=== PATIENT | male | born 1955 | race Caucasian/White ===

== ENCOUNTER → 2017-03-25 | Outpatient (CLI) | payer BC, OTHER ==
[2017-03-30 11:54] LABS: ALPHAHYDROXYALPRAZOLAM NEGATIVE ng/mL (< 25); ALPHAHYDROXYMIDAZOLAM NEGATIVE ng/mL (< 50); ALPHAHYDROXYTRIAZOLAM NEGATIVE ng/mL (< 50); AMPHETAMINES NEGATIVE ng/mL (< 500); BARBITURATES NEGATIVE ng/mL (< 300); BENZODIAZEPINES POSITIVE ng/mL (< 100); COCAINE METABOLITE NEGATIVE ng/mL (< 150); CODEINE NEGATIVE ng/mL (< 50); CREATININE 59.2 mg/dL (>= 20.0); EDDP 4230 ng/mL (< 100); HYDROCODONE NEGATIVE ng/mL (< 50); HYDROMORPHONE 143 ng/mL (< 50); LORAZEPAM NEGATIVE ng/mL (< 50); MARIJUANA METABOLITE NEGATIVE ng/mL (< 20); METHADONE 2960 ng/mL (< 100); METHADONE METABOLITE POSITIVE ng/mL (< 100); MORPHINE >20000 ng/mL (< 50); NORDIAZEPAM NEGATIVE ng/mL (< 50); OPIATES POSITIVE ng/mL (< 100); OXAZEPAM NEGATIVE ng/mL (< 50); OXIDANT NEGATIVE mcg/mL (< 200); OXYCODONE POSITIVE ng/mL (< 100); OXYCODONE METABOLITE 1690 ng/mL (< 50); OXYMORPHONE 596 ng/mL (< 50); PHENCYCLIDINE NEGATIVE ng/mL (< 25); PRESCRIBED DRUG 1 Morphine; PRESCRIBED DRUG 2 Methadone; TEMAZEPAM NEGATIVE ng/mL (< 50)
== END ==
LOC: LAB.R 08:00
PROVIDERS: ATTEND Family Medicine
DX: Z79.891 Long term (current) use of opiate analgesic (principal)
CPT/HCPCS: 80307

== ENCOUNTER 2017-05-27 15:57 | Outpatient (CLI) | payer OTHER | END 2017-05-27 15:58 | disposition critical access hospital (66) | LOC: EMS 15:57 | PROVIDERS: ATTEND Surgery | DX: R07.9 Chest pain, unspecified (principal); M25.552 Pain in left hip; W11.XXXA Fall on and from ladder, initial encounter; Y92.008 Other place in unspecified non-institutional (private) residence as the place of occurrence of the external cause | CPT/HCPCS: A0425; A0427 ==

== ENCOUNTER 2017-05-27 16:39 | Emergency (ER) | payer OTHER ==
[2017-05-27] MEDS ORDERED: SODIUM CHLORIDE 0.9% 1,000 ML IV ONE (16:45)
--- NOTE | 2017-05-27 16:48 | ED Physician Documentation ---
PD HPI Fall - Stated complaint Stated Complaint: 5 FOOT FALL - History obtained from History obtained from: Patient, EMS - History of Present Illness Mechanism of injury: Other (About 5 feet up on a ladder and fell on his left side impacting his chest lateral wall on the deck. He has no recollection of the actual fall and prior to arrival was confused with repetitive questioning. He has a history of diabetes, chronic back pain. He was desaturating in route into the mid 80s and was placed on a nasal cannula. He is not anticoagulated.) Review of Systems Ten Systems: 10 systems reviewed and negative Constitutional: denies: Fever, Chills Nose: denies: Rhinorrhea / runny nose, Congestion, Epistaxis Cardiac: reports: Chest pain / pressure. denies: Palpitations Respiratory: reports: Dyspnea. denies: Cough GI: denies: Abdominal Pain PD PAST MEDICAL HISTORY - Present Medications Home Medications: Ambulatory Orders Medication Instructions Recorded Confirmed Amitriptyline HCl 05/27/17 Amitriptyline HCl [Amitriptyline 05/27/17 HCl] Atenolol 05/27/17 Ezetimibe [Ezetimibe] 05/27/17 Insulin Glargine [Lantus Solostar] 05/27/17 Insulin Lispro [Humalog] 05/27/17 Lisinopril [Lisinopril] 05/27/17 Methadone HCl [Methadone HCl] 05/27/17 Morphine Sulfate [Morphine Sulfate 05/27/17 ER] clonazePAM [Clonazepam] 05/27/17 oxyCODONE [Roxicodone] 1 - 2 tab PO Q4-6H PRN #25 tablet 05/27/17 risperiDONE [Risperidone] 05/27/17 - Allergies Allergies/Adverse Reactions: Allergies Allergy/AdvReac Type Severity Reaction Status Date / Time No Known Drug Allergies Allergy Verified 05/27/17 16:49 PD ED PE NORMAL - Vitals Vital signs reviewed: Yes - General General: Alert and oriented X 3, No acute distress - HEENT HEENT: PERRL, EOMI - Neck Neck: No bony TTP, Other (In a c-collar and on a backboard. The c-collar is maintained pending imaging given potential distracting injury but the backboard is removed using logroll precautions during examination.) - Cardiac Cardiac: RRR, No murmur - Respiratory Respiratory: Other (Tender to the left chest wall but without deformity. He does have diminished breath sounds on the left. Nonlabored.) - Abdomen Abdomen: Normal bowel sounds, Soft, Non tender - Back Back: No CVA TTP, No spinal TTP - Derm Derm: Normal color, Warm and dry - Extremities Extremities: No deformity, No tenderness to palpate, Normal ROM s pain, No edema , No calf tenderness / cord - Neuro Neuro: Alert and oriented X 3 Eye Opening: Spontaneous Motor: Obeys Commands Verbal: Oriented GCS Score: 15 Results - Vitals Vitals: Vital Signs - 24 hr 05/27/17 05/27/17 05/27/17 16:43 20:08 20:48 Temperature 37 C 37.1 C 36.9 C Heart Rate 72 68 74 Respiratory 10 L 14 12 Rate Blood Pressure 182/91 H 123/74 165/77 H O2 Saturation 89 L 96 91 L Oxygen O2 Source Room air - EKG (time done) 1647 Rate: Rate (enter#) (71) Rhythm: NSR (with PVC) Cammal: Normal Intervals: Normal RI QRS: Normal Ischemia: Non specific changes Computer interpretation: Agree with computer - Labs Labs: Laboratory Tests 05/27/17 05/27/17 05/27/17 16:47 16:47 16:47 WBC 9.7 RBC 4.21 L Hgb 12.3 L Hct 36.8 L MCV 87.3 MCH 29.3 MCHC 33.6 RDW 14.7 Plt Count 174 MPV 7.1 L Neut # 7.1 H Lymph # 1.5 Redwood # 0.6 Eos # 0.4 Baso # 0.1 Absolute Nucleated RBC 0.01 Nucleated RBC % 0.1 PT 10.4 INR 0.9 Sodium 134 L Potassium 3.6 Chloride 95 L Carbon Dioxide 27 Anion Gap 12.0 BUN 23 H Creatinine 1.6 H Estimated GFR (MDRD) 44 L Glucose 163 H Calcium 9.3 Total Bilirubin 0.5 AST 68 H ALT 66 H Alkaline Phosphatase 72 Total Protein 7.1 Albumin 3.7 Globulin 3.4 Albumin/Globulin Ratio 1.1 Lipase < 10 L Blood Type Antibody Screen 05/27/17 16:47 WBC RBC Hgb Hct MCV MCH MCHC RDW Plt Count MPV Neut # Lymph # Redwood # Eos # Baso # Absolute Nucleated RBC Nucleated RBC % PT INR Sodium Potassium Chloride Carbon Dioxide Anion Gap BUN Creatinine Estimated GFR (MDRD) Glucose Calcium Total Bilirubin AST ALT Alkaline Phosphatase Total Protein Albumin Globulin Albumin/Globulin Ratio Lipase Blood Type B POSITIVE Antibody Screen NEGATIVE - Rads (name of study) CT Head/Cspine/Chest/Abd/Pelvis Radiology: EMP read contemporaneously (Degenerative changes of the head and neck , there is an anterior third rib fracture that the radiologist feels is old but the patient has no recollection of a prior rib fracture, so may be new. There is no pneumothorax. There is no visceral injury in the abdomen there is an acetabular fracture on the left.) PD MEDICAL DECISION MAKING - ED course ED course: 61-year-old gentleman with fall from a ladder. May be a new rib fracture although the radiologist felt it was old although he has no recollection of a prior rib fracture. He does have an acetabular fracture on the left. The case was discussed by phone with Dr. Min Sanders who felt that it was likely he can be toe-touch weightbearing for 6 weeks and this could be managed conservatively. That said he also recommended that the images be pushed [facility] to talk to the pelvic fracture team to confirm this. I did discuss the case with Dr. Carlos Montejo on the orthosis for this at [facility] who confirmed these recommendations. I went over touch toe weightbearing with the patient and we administered him a incentive spirometer. After combination of pulmonary toilet, pain control, and incentive spirometry, his sats were normal on room air. Departure - Departure Disposition: 01 Home, Self Care Clinical Impression: Contusion of chest wall Qualifiers: Encounter type: initial encounter Laterality: left Qualified Code(s): S20.212A - Contusion of left front wall of thorax, initial encounter Fracture of rib Qualifiers: Encounter type: initial encounter Rib fracture type: single rib Fracture type: closed Laterality: left Qualified Code(s): S22.32XA - Fracture of one rib, left side, initial encounter for closed fracture Injury of back Qualifiers: Encounter type: initial encounter Qualified Code(s): S39.92XA - Unspecified injury of lower back, initial encounter Back strain Qualifiers: Encounter type: initial encounter Qualified Code(s): S39.012A - Strain of muscle, fascia and tendon of lower back, initial encounter Fracture of pelvis Qualifiers: Encounter type: initial encounter Pelvic bone location: acetabulum Sublocation of acetabulum: dome Fracture type: closed Fracture alignment: nondisplaced Laterality: left Qualified Code(s): S32.485A - Nondisplaced dome fracture of left acetabulum, initial encounter for closed fracture Clinical Impression: (Ruled Out): Pneumothorax Condition: Stable Record reviewed to determine appropriate education?: Yes Instructions: ED Fx Pelvis, ED Contusion Rib Prescriptions: oxyCODONE [Roxicodone] 1 - 2 tab PO Q4-6H PRN #25 tablet PRN Reason: Pain Comments: Continue your baseline pain medications. Use the incentive spirometer as discussed. Touch toe weightbearing as shown until advised it is safe to do otherwise by your orthopedic surgeon. Follow-up with your orthopedist in [place] next week. Take the copy of the x-ray and CAT scan on CD with you for that appointment. He will need repeat x-rays in 1 week. Return if worse. Do not drink or drive while taking narcotic pain medication. Note that many narcotic pain relievers also contain Tylenol/acetaminophen. Please ensure that your total dose of acetaminophen from all sources does not exceed 3 g (3000 mg) per day. You may get constipated while on this medication. Take a stool softener such as Colace twice a day while you are on it. Also add an ewne-qja-qygyggc laxative such as senna or MiraLAX on any day that you do not have a bowel movement. If you received a narcotic pain medication or sedative while in the emergency department, do not drive for the next 24 hours. Discharge Date/Time: 05/27/17 20:58
[2017-05-27 16:54] LABS: BASOPHILS # (AUTO) 0.1 10^3/uL (0.0-0.1); BASOPHILS % (AUTO) 0.7 %; EOSINOPHILS # (AUTO) 0.4 10^3/uL (0.0-0.7); EOSINOPHILS % (AUTO) 4.2 %; HGB - HEMOGLOBIN 12.3 g/dL (14.0-18.0); LYMPHOCYTES # (AUTO) 1.5 10^3/uL (1.5-3.5); LYMPHOCYTES % (AUTO) 15.2 %; MEAN CORPUSCULAR HEMOGLOBIN 29.3 pg (27.0-31.0); MEAN CORPUSCULAR HGB CONC 33.6 g/dL (32.0-36.0); MEAN CORPUSCULAR VOLUME 87.3 fL (80.0-94.0); MEAN PLATELET VOLUME 7.1 fL (7.4-11.4); MONOCYTES # (AUTO) 0.6 10^3/uL (0.0-1.0); MONOCYTES % (AUTO) 6.4 %; NEUTROPHILS # (AUTO) 7.1 10^3/uL (1.5-6.6); NEUTROPHILS % (AUTO) 73.5 %; PLT - PLATELET COUNT 174 10^3/uL (130-450); RED BLOOD COUNT 4.21 10^6/uL (4.70-6.10); RED CELL DISTRIBUTION WIDTH 14.7 % (12.0-15.0); WHITE BLOOD COUNT 9.7 x10^3/uL (4.8-10.8)
[2017-05-27] MEDS ORDERED: IOPAMIDOL-300 100 ML VIAL ONE (16:57)
[2017-05-27 17:10] LABS: INR 0.9 (0.8-1.2); PT - PROTHROMBIN TIME 10.4 secs (9.9-12.6)
--- NOTE | 2017-05-27 17:11 | XRAY Report ---
EXAM: CHEST RADIOGRAPHY EXAM DATE: 05/27/2017 04:52 PM. CLINICAL HISTORY: Chest pain fall. COMPARISON: 05/01/2011. TECHNIQUE: 1 view. FINDINGS: Lungs/Pleura: Mild diffuse prominence of lung markings, possibly related to supine technique. No loca lized infiltrate, consolidation, effusion, or pneumothorax. Mediastinum: Borderline cardiomegaly, unchanged. Other: None. IMPRESSION: No acute disease. [facility] Referring Provider Line: [phone] SITE ID: [id number]
[2017-05-27] MEDS ORDERED: HYDROmorphone 1 MG/ML SYRINGE IVP STA ×3 (17:16→20:41)
[2017-05-27 17:17] LABS: ALBUMIN 3.7 g/dL (3.2-5.5); ALBUMIN/GLOBULIN RATIO 1.1 (1.0-2.2); ALKALINE PHOSPHATASE 72 IU/L (42-121); ALT ALANINE AMINOTRANSFERASE 66 IU/L (10-60); AST ASPARTATE AMINOTRANSFERASE 68 IU/L (10-42); BILIRUBIN,TOTAL 0.5 mg/dL (0.2-1.0); BUN - BLOOD UREA NITROGEN 23 mg/dL (6-20); CALCIUM 9.3 mg/dL (8.5-10.3); CARBON DIOXIDE - CO2 27 mmol/L (21-32); CHLORIDE 95 mmol/L (101-111); CREATININE 1.6 mg/dL (0.6-1.2); GFR - MDRD 44 (>89); GLUCOSE 163 mg/dL (70-100); SODIUM 134 mmol/L (135-145); TOTAL PROTEIN 7.1 g/dL (6.7-8.2)
[2017-05-27 17:18] LABS: LIPASE < 10 U/L (22-51)
[2017-05-27] MEDS ORDERED: IOPAMIDOL-300 100 ML VIAL IVP ONE (17:27)
--- NOTE | 2017-05-27 17:31 | CT Report ---
EXAM: CT HEAD EXAM DATE: 05/27/2017 05:17 PM. CLINICAL HISTORY: Fall, pain. COMPARISON: None. TECHNIQUE: Multiaxial CT images were obtained from the foramen magnum to the vertex. Reformats: Coron al. IV contrast: None. In accordance with CT protocol optimization, one or more of the following dose reduction techniques w ere utilized for this exam: automated exposure control, adjustment of mA and/or KV based on patient s ize, or use of iterative reconstructive technique. FINDINGS: Parenchyma: No intraparenchymal hemorrhage. No evidence of mass, midline shift, or CT findings of acu te infarction. Bonilla-white differentiation is distinct. Diffuse chronic microangiopathic white matter changes. Extraaxial Spaces: Normal for age. No subdural or epidural collections. Ventricles: The ventricles and cortical sulci are enlarged, consistent with age-related tissue loss. Sinuses and orbits: Imaged paranasal sinuses, orbits, and mastoids show no significant abnormality. Bones: Postoperative changes of left facial bones. No acute abnormality. Other: None. IMPRESSION: Generalized age-related cortical atrophic changes without evidence of acute intracranial abnormality. [facility] Referring Provider Line: [phone] SITE ID: [id number]
--- NOTE | 2017-05-27 17:36 | CT Report ---
EXAM: CT CERVICAL SPINE WITHOUT CONTRAST DATE: 05/27/2017 05:17 PM. HISTORY: Fall, pain. COMPARISONS: None. TECHNIQUE: Thin-section axial images were acquired of the cervical spine without contrast. Post-proce ssing: Coronal and sagittal reformats. Other: None. In accordance with CT protocol optimization, one or more of the following dose reduction techniques w ere utilized for this exam: automated exposure control, adjustment of mA and/or KV based on patient s ize, or use of iterative reconstructive technique. FINDINGS: Alignment: Mild scoliosis. No listhesis. Bones: No definite fracture or other bone lesion. Interspace Levels/Facets: Disk space narrowing at C4-C5, C5-C6, and C6-C7 with small marginal osteoph ytes. Other disk spaces preserved. Generalized degenerative changes. Musculature: Unremarkable. Other: The paravertebral and prevertebral soft tissues are unremarkable. Hazy density in both lung ap ices, probably atelectatic. IMPRESSION: Degenerative changes. No acute disease. [facility] Referring Provider Line: [phone] SITE ID: [id number]
--- NOTE | 2017-05-27 17:36 | CT Preliminary Report ---
Exam: CT CERVICAL SPINE W/O IMPRESSION: Degenerative changes. No acute disease. [facility] SITE ID: [id number]
--- NOTE | 2017-05-27 17:56 | CT Report ---
EXAM: CT CHEST EXAM DATE: 05/27/2017 05:10 PM. CLINICAL HISTORY: Chest pain fall. COMPARISONS: 04/16/[address] TECHNIQUE: Routine helical CT imaging was performed through the chest. IV contrast: None. Reconstruct ions: Coronal and sagittal. In accordance with CT protocol optimization, one or more of the following dose reduction techniques w ere utilized for this exam: automated exposure control, adjustment of mA and/or KV based on patient s ize, or use of iterative reconstructive technique. FINDINGS: Lungs/Pleura: There are mild emphysematous changes at the lung apices. Subpleural reticular opacities also seen. Dependent changes seen at the lung bases. No consolidation, pleural effusion or pneumotho rax. Mediastinum: Normal. No adenopathy or masses. The heart and great vessels are normal. Mildly enlarged high right paraesophageal and AP window lymph nodes are stable. Bones: There is a moderately depressed anterior right third rib fracture possibly chronic. Otherwise no acute fracture seen. Visualized Abdomen: Unremarkable. Other: None. IMPRESSION: 1. Chronic-appearing, anterior right third rib fracture deformity. 2. No acute pulmonary abnormality. 3. Emphysema. [facility] Referring Provider Line: [phone] SITE ID: [id number]
--- NOTE | 2017-05-27 18:02 | CT Report ---
EXAM: CT ABDOMEN AND PELVIS EXAM DATE: 05/27/2017 05:10 PM. CLINICAL HISTORY: IV only, trauma. COMPARISONS: None. TECHNIQUE: Routine helical CT imaging was performed through the abdomen and pelvis. IV contrast: ISOV UE 300 100mL. Enteric contrast: No. Reconstructions: Coronal and sagittal. In accordance with CT protocol optimization, one or more of the following dose reduction techniques w ere utilized for this exam: automated exposure control, adjustment of mA and/or KV based on patient s ize, or use of iterative reconstructive technique. FINDINGS: Lung Bases: Unremarkable. Liver: Decreased hepatic attenuation with no focal liver lesions. Gallbladder/Bile Ducts: Unremarkable. Spleen: Normal. Pancreas: Normal. Adrenal Glands: Normal. Kidneys: Normal. No masses or hydronephrosis. Peritoneal Cavity/Bowel: Normal. No free fluid, free air or adenopathy. No masses or acute inflammato ry process. Diverticulosis. No diverticulitis or other acute inflammatory process. Pelvic Organs: Normal. The bladder and visualized pelvic organs are within normal limits. Vasculature: Atherosclerotic aorta without evidence of aneurysm. Bones: There mildly displaced fractures involving the anterior column and roof of left acetabulum. Other: None. IMPRESSION: 1. Left acetabular fractures. 2. No evidence of acute solid or hollow abdominal viscera trauma. 3. Fatty liver. 4. Diverticulosis. [facility] Referring Provider Line: [phone] SITE ID: [id number]
--- NOTE | 2017-05-27 18:02 | CT Preliminary Report ---
Exam: CT ABDOMEN/PELVIS W/ IMPRESSION: 1. Left acetabular fractures. 2. No evidence of acute solid or hollow abdominal viscera trauma. 3. Fatty liver. 4. Diverticulosis. [facility] SITE ID: [id number]
--- NOTE | 2017-05-27 18:08 | XRAY Preliminary Report ---
Exam: XR HIP W/PELVIS 2-3V LT IMPRESSION: Left acetabulum fracture. [facility] SITE ID: [id number]
--- NOTE | 2017-05-27 18:09 | XRAY Report ---
EXAM: LEFT HIP AND PELVIS RADIOGRAPHY EXAM DATE: 05/27/2017 05:44 PM. HISTORY: HIP PAIN FALL. COMPARISONS: None. TECHNIQUE: 1 view of the pelvis and 1 view of the hip. FINDINGS: Bones: There is a nondisplaced vertically oriented fracture involving the roof of the left acetabulum extending superiorly towards the squamous portion of the ileum. This is better demonstrated on CT. N o other fractures seen. Joints: The bilateral hip, pubis symphysis, and sacroiliac joints are preserved. Soft Tissues: Normal. No soft tissue swelling. IMPRESSION: Left acetabulum fracture. [facility] Referring Provider Line: [phone] SITE ID: [id number]
[2017-05-27] MEDS ORDERED: KETOROLAC 60 MG/2 ML VIAL IVP STA (19:10)
[2017-05-27] MEDS ORDERED: oxyCODONE/ACET 5/325 Prepack 4 PO STA (20:41)
[2017-05-27 20:50] VITALS: BP 165/77
== END 2017-05-27 20:58 | disposition home or self-care (01) ==
LOC: EDUNIT# → ED 16:39
DX: S20.212A Contusion of left front wall of thorax, initial encounter (principal); S22.32XA Fracture of one rib, left side, initial encounter for closed fracture; S39.92XA Unspecified injury of lower back, initial encounter; S39.012A Strain of muscle, fascia and tendon of lower back, initial encounter; S32.485A Nondisplaced dome fracture of left acetabulum, initial encounter for closed fracture; W11.XXXA Fall on and from ladder, initial encounter; R94.31 Abnormal electrocardiogram [ECG] [EKG]; E11.9 Type 2 diabetes mellitus without complications; G89.29 Other chronic pain; Z79.4 Long term (current) use of insulin
CPT/HCPCS: 36415; 70450; 71045; 71260; 72125; 73502; 74177; 80053; 83690; 85025; 85610; 86850; 86900; 86901; 93005; 96361; 96374; 96375; 96376; 99284; J1170; Q9967

== ENCOUNTER 2018-01-06 08:00 | Outpatient (CLI) | payer OTHER ==
[2018-01-06 18:22] LABS: MUDS CUTOFF CONCENTRATIONS CUTOFF CONC BELOW:
[2018-01-06 18:51] LABS: AMPHETAMINE SCREEN,URINE NEGATIVE (NEGATIVE); BENZODIAZEPINES SCREEN, URINE NEGATIVE (NEGATIVE); COCAINE SCREEN URINE NEGATIVE (NEGATIVE); METHADONE SCREEN, URINE POSITIVE (NEGATIVE); METHAMPHETAMINES SCREEN, URINE NEGATIVE (NEGATIVE); OPIATE SCREEN, URINE POSITIVE (NEGATIVE); OXYCODONE SCREEN, URINE NEGATIVE (NEGATIVE); PROPOXYPHENE SCREEN, URINE NEGATIVE (NEGATIVE); TRICYCLIC ANTIDEPRESSANT,URINE POSITIVE (NEGATIVE)
== END 2018-01-06 08:01 | disposition home or self-care (01) ==
LOC: LAB.R 08:00
PROVIDERS: ATTEND Nurse Practitioner Family
DX: G89.29 Other chronic pain (principal)
CPT/HCPCS: 80306

== ENCOUNTER 2018-02-10 08:39 | Outpatient (CLI) | payer OTHER ==
--- NOTE | 2018-02-10 17:06 | DEXA Report ---
Reason: OSTEOPOROSS, SEVERE Procedure Date: 02/10/2018 Accession Number: [id number] / [id number] Procedure: DEX - Dexa Spine and/or Hip CPT Code: FULL RESULT: EXAM: Dexa Spine and/or Hip DATE: 02/10/2018 9:34 AM CLINICAL HISTORY: OSTEOPOROSIS, SEVERE TECHNIQUE: Dual energy x-ray absorptiometry (DXA) was performed on a [employer]. Regions measured are the AP Spine, femoral neck, and if needed forearm. COMPARISON: None. In accordance with the International Society for Clinical Densitometry (ISCD) guidelines, data from previous exams may be reanalyzed using current recommendations and techniques. This is done to allow a more accurate basis for comparison with the current study. FINDINGS: The data for the lumbar spine is as follows: BMD (g/cm/cm) T-SCORE Z-SCORE REGION L1 0.919 -2.0 -1.9 L2 1.151 -0.7 -0.6 L3 1.101 -1.2 -1.0 L4 1.063 -1.5 -1.4 TOTAL 1.062 -1.3 -1.2 NOTE: All evaluable vertebrae are used for classification The data for the hip is as follows: BMD (g/cm/cm) T-SCORE Z-SCORE REGION Neck 0.956 -0.9 -0.1 TOTAL 0.894 -1.4 -1.1 NOTE: The femoral neck or total proximal femur, whichever is lowest, is used for classification. IMPRESSION: THE WHO CLASSIFICATION BASED ON THE INTERNATIONAL REFERENCE STANDARD IS OSTEOPENIA. THE FRACTURE RISK IS INCREASED. RECOMMENDATION: Patients with diagnosis of osteoporosis or osteopenia should have regular bone mineral density assessment. For those eligible for Medicare, routine testing is allowed once every 2 years. Testing frequency can be increased for patients who have rapidly progressing disease or for those who are receiving medical therapy to restore bone mass. COMMENT: World Health Organization (WHO) definitions for osteoporosis and osteopenia: NORMAL BMD: T-score at -1.0 or higher, fracture risk is low OSTEOPENIA BMD: T-score between -1.0 and -2.5, fracture risk is increased. OSTEOPOROSIS BMD: T-score at -2.5 or lower, fracture risk is high. National Osteoporosis Foundation recommends: 1. Obtain adequate dietary calcium (at least 1200 mg per day) and vitamin D (400-800 international units per day). 2. Participate, as appropriate, in regular weightbearing and muscle-strengthening exercise. 3. Avoid tobacco use and reduce alcohol and caffeine intake. 4. For more detailed information see the website at www.NOF.org.
== END 2018-02-10 08:40 | disposition home or self-care (01) ==
LOC: DI 08:39
PROVIDERS: ATTEND Internal Medicine Endocrinology, Diabetes & Metabolism
DX: M85.89 Other specified disorders of bone density and structure, multiple sites (principal)
CPT/HCPCS: 77080

== ENCOUNTER 2018-08-15 08:00 | Outpatient (CLI) | payer OTHER ==
[2018-08-15 18:48] LABS: HB2 TOTAL 14.6 g/dL; HEMOGLOBIN A1C 0.83 g/dL; HEMOGLOBIN A1C % 7.4 % (4.6-6.2)
== END 2018-08-15 23:59 | disposition home or self-care (01) ==
LOC: LAB.S 08:00
PROVIDERS: ATTEND Nurse Practitioner Family
DX: E11.9 Type 2 diabetes mellitus without complications (principal)
CPT/HCPCS: 36415; 83036

== ENCOUNTER 2018-10-14 11:33 | Outpatient (CLI) | payer OTHER ==
[2018-10-14 18:31] LABS: CALCIUM 9.9 mg/dL (8.5-10.3); CREATININE 1.1 mg/dL (0.6-1.2)
[2018-10-14 18:33] LABS: HB2 TOTAL 14.6 g/dL; HEMOGLOBIN A1C 0.56 g/dL; HEMOGLOBIN A1C % 5.7 % (4.6-6.2)
== END 2018-10-14 11:34 | disposition home or self-care (01) ==
LOC: LAB.S 11:33
PROVIDERS: ATTEND Physician Assistant Medical
DX: E11.9 Type 2 diabetes mellitus without complications (principal)
CPT/HCPCS: 36415; 80048; 83036

== ENCOUNTER 2019-07-17 19:16 | Outpatient (CLI) | payer MEDICARE | END 2019-07-17 19:17 | disposition home or self-care (01) | LOC: COV 19:16 | PROVIDERS: ATTEND Family Medicine | DX: R50.9 Fever, unspecified (principal); R05 Cough; R06.02 Shortness of breath; R06.2 Wheezing; M79.10 Myalgia, unspecified site; R53.83 Other fatigue; J02.9 Acute pharyngitis, unspecified; R19.7 Diarrhea, unspecified | CPT/HCPCS: 81599 ==

== ENCOUNTER 2019-07-20 11:53 | Emergency (ER) | payer MEDICARE ==
--- NOTE | 2019-07-20 12:35 | ED Physician Documentation ---
History of Present Illness - Stated complaint Stated Complaint: SOA/EYE PAIN/COUGH - Chief complaint Chief Complaint: General - History obtained from History obtained from: Patient (Patient comes in today per the request of his primary care provider to get a chest x-ray to make sure he does not have a pneumonia. The patient has had a approximately 3 to 4-week history of shortness of breath that is required him to use his inhaler at home. He used it twice today. Patient was feeling sick approximately 3 weeks ago he went saw his primary care provider, he was tested for the COVID-19 and he came back negative. His symptoms of can remain the same since then he has had no recent contact with cocaine positive patients, he has been self quarantine at home, his who lives with him at home is not ill. Patient denies any fevers, nausea, vomiting, diarrhea.) Review of Systems Constitutional: denies: Fever, Chills, Weight Loss Eyes: reports: Reviewed and negative Ears: reports: Reviewed and negative Nose: denies: Rhinorrhea / runny nose, Sinus pressure / pain Throat: denies: Sore throat Respiratory: denies: Cough, Wheezing GI: denies: Abdominal Pain, Nausea, Vomiting, Diarrhea Skin: reports: Reviewed and negative Musculoskeletal: reports: Other (baseline pain that he take morphine for. NO new body aches/ pains.) Neurologic: denies: Headache, Head injury PD PAST MEDICAL HISTORY - Past Medical History Cardiovascular: Hypertension, High cholesterol Endocrine/Autoimmune: Type 2 diabetes GI: GERD Musculoskeletal: Osteoarthritis, Osteoporosis, Chronic back pain - Past Surgical History Past Surgical History: Yes - Present Medications Home Medications: Ambulatory Orders Medication Instructions Recorded Confirmed Amitriptyline HCl 100 mg PO DAILY 05/27/17 09/27/17 Amitriptyline HCl 100 mg PO DAILY 05/27/17 09/27/17 Ezetimibe 10 mg PO DAILY 05/27/17 09/27/17 Insulin Glargine [Lantus Solostar] 100 units SUBQ QPM 05/27/17 10/13/17 Insulin Lispro [Humalog] 15 - 35 units SUBQ BIDWM PRN 05/27/17 09/27/17 Methadone HCl 1 tab PO QID 05/27/17 09/27/17 Morphine Sulfate [Morphine Sulfate 1 tab PO BID 05/27/17 09/27/17 ER] atenoloL [Atenolol] 50 mg PO BID 05/27/17 09/27/17 clonazePAM [Clonazepam] 1 tab PO PRN PRN 05/27/17 09/27/17 lisinopriL [Lisinopril] 20 mg PO BID 05/27/17 09/27/17 oxyCODONE [Roxicodone] 1 - 2 tab PO Q4-6H PRN #25 tablet 05/27/17 09/27/17 risperiDONE [Risperidone] 4 mg PO DAILY 05/27/17 09/27/17 Pantoprazole Sodium 20 mg PO DAILY 09/27/17 09/27/17 Testosterone [Testim] 5 gm TD DAILY 09/27/17 09/27/17 - Allergies Allergies/Adverse Reactions: Allergies Allergy/AdvReac Type Severity Reaction Status Date / Time No Known Drug Allergies Allergy Verified 05/27/17 16:49 - Social History Does the pt smoke?: No Smoking Status: Former smoker Does the pt drink ETOH?: No Does the pt have substance abuse?: No PD ED PE NORMAL - General General: Alert and oriented X 3, No acute distress, Well developed/nourished - HEENT HEENT: Atraumatic, PERRL, EOMI, Ears normal, Moist mucous membranes, Pharynx benign - Neck Neck: No adenopathy - Cardiac Cardiac: RRR, No murmur - Respiratory Respiratory: No respiratory distress, Clear bilaterally - Abdomen Abdomen: Normal bowel sounds, Soft, Non tender, Non distended - Back Back: No CVA TTP - Extremities Extremities: Other (LLE BKA.) - Neuro Neuro: Alert and oriented X 3 Results - Vitals Vitals: Vital Signs - 24 hr 07/20/19 12:08 Temperature 36.7 C Heart Rate 70 Respiratory 16 Rate Blood Pressure 141/81 H O2 Saturation 98 Oxygen O2 Source Room air - Rads (name of study) No standard instances Radiology: See rad report (no focal consolidation identified.) PD MEDICAL DECISION MAKING - ED course Complexity details: reviewed results, re-evaluated patient, considered differential (Assess) versus pneumonia versus viral upper respiratory infection.), d/w patient Departure - Departure Disposition: 01 Home, Self Care Clinical Impression: Viral URI with cough Condition: Good Instructions: ED Viral Syndrome Comments: Your chest x-ray today was normal and did not show any pneumonia. Your longs sound clear and moving air easily. Your ears, nose, and throat appear normal as well. It will take roughly 24 -36 hours for the results of the Covid-19 test results to come back. You can continue to take Ibuprofen &/or Tylenol for body aches and low grade fevers. Contact your primary care provider to schedule a follow up appointment in one week.
--- NOTE | 2019-07-20 12:42 | XRAY Report ---
Reason: cough Procedure Date: 07/20/2019 Accession Number: [id number] / [id number] Procedure: XR - Chest 1 View X-Ray CPT Code: 64483 Final Report FULL RESULT: EXAM: CHEST RADIOGRAPHY EXAM DATE: 07/20/2019 12:28 PM. CLINICAL HISTORY: Cough. COMPARISON: CHEST 1 VIEW 05/27/2017 4:38 PM. TECHNIQUE: 1 view. FINDINGS: Lungs/Pleura: No acute consolidations or pulmonary edema identified. No significant change in mildly prominent interstitial markings bilaterally. Heart size within normal limits. IMPRESSION: No focal consolidations identified [facility]
[2019-07-20 13:59] VITALS: BP 138/86
== END 2019-07-20 13:20 | disposition home or self-care (01) ==
LOC: ED 11:53
DX: J06.9 Acute upper respiratory infection, unspecified (principal); I10 Essential (primary) hypertension; E11.9 Type 2 diabetes mellitus without complications; Z87.891 Personal history of nicotine dependence; Z79.4 Long term (current) use of insulin
CPT/HCPCS: 71045; 99284; U0004; 81599

== ENCOUNTER 2019-09-25 12:20 | Emergency (ER) | payer MEDICARE ==
--- NOTE | 2019-09-25 13:06 | ED Physician Documentation ---
History of Present Illness - Stated complaint Stated Complaint: FEVER/DIZZY - Chief complaint Chief Complaint: General - History obtained from History obtained from: Patient - History of Present Illness Timing: Last night - Additonal information Additional information: 64-year-old gentleman with history of diabetes, cervical myelopathy status post laminectomy in the last couple of months with improving strength. Starting last night he was not feeling so great and this morning felt presyncopal. He was febrile to 101. His blood sugars have been on the high side this morning despite taking extra insulin. Minimal cough. Some runny nose and he has some bad teeth. No urinary complaints or abdominal pain. Review of Systems Constitutional: reports: Fever, Fatigue Respiratory: reports: Cough (v mild). denies: Dyspnea GI: denies: Abdominal Pain, Nausea, Diarrhea PD PAST MEDICAL HISTORY - Past Medical History Cardiovascular: Hypertension, High cholesterol Respiratory: Asthma Neuro: None Endocrine/Autoimmune: Type 2 diabetes GI: GERD : None HEENT: None Psych: None Musculoskeletal: Osteoarthritis, Osteoporosis, Chronic back pain Derm: None - Past Surgical History Past Surgical History: Yes - Present Medications Home Medications: Ambulatory Orders Medication Instructions Recorded Confirmed Amitriptyline HCl 100 mg PO DAILY 05/27/17 09/27/17 Amitriptyline HCl 100 mg PO DAILY 05/27/17 09/27/17 Ezetimibe 10 mg PO DAILY 05/27/17 09/27/17 Insulin Glargine [Lantus Solostar] 100 units SUBQ QPM 05/27/17 10/13/17 Insulin Lispro [Humalog] 15 - 35 units SUBQ BIDWM PRN 05/27/17 09/27/17 Methadone HCl 1 tab PO QID 05/27/17 09/27/17 Morphine Sulfate [Morphine Sulfate 1 tab PO BID 05/27/17 09/27/17 ER] atenoloL [Atenolol] 50 mg PO BID 05/27/17 09/27/17 clonazePAM [Clonazepam] 1 tab PO PRN PRN 05/27/17 09/27/17 lisinopriL [Lisinopril] 20 mg PO BID 05/27/17 09/27/17 oxyCODONE [Roxicodone] 1 - 2 tab PO Q4-6H PRN #25 tablet 05/27/17 09/27/17 risperiDONE [Risperidone] 4 mg PO DAILY 05/27/17 09/27/17 Pantoprazole Sodium 20 mg PO DAILY 09/27/17 09/27/17 Testosterone [Testim] 5 gm TD DAILY 09/27/17 09/27/17 Penicillin V Potassium 500 mg PO Q6HR #40 tablet 09/25/19 - Allergies Allergies/Adverse Reactions: Allergies Allergy/AdvReac Type Severity Reaction Status Date / Time No Known Drug Allergies Allergy Verified 05/27/17 16:49 - Social History Does the pt smoke?: No Smoking Status: Former smoker Does the pt drink ETOH?: No Does the pt have substance abuse?: No - Immunizations Immunizations are current?: Yes - POLST Patient has POLST: No PD ED PE NORMAL - Vitals Vital signs reviewed: Yes - General General: Alert and oriented X 3, No acute distress - HEENT HEENT: PERRL, EOMI, Other (Generally poor dentition and he does have a tender tooth, right mandibular premolar) - Neck Neck: Supple, no meningeal sign, No bony TTP - Cardiac Cardiac: RRR, No murmur - Respiratory Respiratory: No respiratory distress, Clear bilaterally - Abdomen Abdomen: Soft, Non tender - Back Back: No CVA TTP, No spinal TTP - Derm Derm: Normal color, Warm and dry - Extremities Extremities: Other (He has a left BKA. There is a small healing pressure ulcer on the right heel without infection.) - Neuro Neuro: Alert and oriented X 3, Normal speech, Other (Some general weakness but improving after the laminectomy per him and his .) Results - Vitals Vitals: Vital Signs - 24 hr 09/25/19 09/25/19 09/25/19 12:25 13:30 14:00 Temperature 36.8 C Heart Rate 107 H 92 92 Respiratory 20 18 18 Rate Blood Pressure 136/109 H 170/89 H 175/76 H O2 Saturation 97 96 97 Oxygen O2 Source Room air - Labs Labs: Laboratory Tests 09/25/19 09/25/19 09/25/19 12:36 13:21 13:21 WBC 8.5 RBC 4.79 Hgb 14.2 Hct 42.6 MCV 88.9 MCH 29.6 MCHC 33.3 RDW 13.2 Plt Count 163 MPV 8.5 Neut # (Auto) 5.8 Lymph # (Auto) 1.8 [place] # (Auto) 0.5 Eos # (Auto) 0.4 Baso # (Auto) 0.0 Absolute Nucleated RBC 0.00 Nucleated RBC % 0.0 Sodium 139 Potassium 4.1 Chloride 100 L Carbon Dioxide 31 Anion Gap 8.0 BUN 23 H Creatinine 0.9 Estimated GFR (MDRD) 85 L Glucose 148 H POC Whole Bld Glucose 200 H Lactic Acid Calcium 9.7 Total Bilirubin 0.6 AST 16 ALT 19 Alkaline Phosphatase 78 Total Protein 8.1 Albumin 4.3 Globulin 3.8 Albumin/Globulin Ratio 1.1 Lipase 20 L Urine Color Urine Clarity Urine pH Ur Specific Crane Urine Protein Urine Glucose (UA) Urine Ketones Urine Occult Blood Urine Nitrite Urine Bilirubin Urine Urobilinogen Ur Leukocyte Esterase Ur Microscopic Review Urine Culture Comments 09/25/19 09/25/19 13:21 14:05 WBC RBC Hgb Hct MCV MCH MCHC RDW Plt Count MPV Neut # (Auto) Lymph # (Auto) [place] # (Auto) Eos # (Auto) Baso # (Auto) Absolute Nucleated RBC Nucleated RBC % Sodium Potassium Chloride Carbon Dioxide Anion Gap BUN Creatinine Estimated GFR (MDRD) Glucose POC Whole Bld Glucose Lactic Acid 0.9 Calcium Total Bilirubin AST ALT Alkaline Phosphatase Total Protein Albumin Globulin Albumin/Globulin Ratio Lipase Urine Color YELLOW Urine Clarity CLEAR Urine pH 7.0 Ur Specific Crane 1.010 Urine Protein TRACE Urine Glucose (UA) NEGATIVE Urine Ketones NEGATIVE Urine Occult Blood NEGATIVE Urine Nitrite NEGATIVE Urine Bilirubin NEGATIVE Urine Urobilinogen 0.2 (NORMAL) Ur Leukocyte Esterase NEGATIVE Ur Microscopic Review NOT INDICATED Urine Culture Comments NOT INDICATED - Rads (name of study) 1v CXR Radiology: EMP read contemporaneously (NAD) PD MEDICAL DECISION MAKING - ED course ED course: 64-year-old gentleman presents with fever, feeling presyncopal and higher than normal blood sugars. Only infectious source was found was a bad tooth and he prefers penicillin given his personal history of C. difficile. Departure - Departure Disposition: 01 Home, Self Care Clinical Impression: Dental infection Fever Qualifiers: Fever type: unspecified Qualified Code(s): R50.9 - Fever, unspecified Condition: Good Record reviewed to determine appropriate education?: Yes Instructions: ED Abscess Dental Prescriptions: Penicillin V Potassium 500 mg PO Q6HR #40 tablet Comments: You were seen today for fever, feeling weak and dizzy. The only source of fever that was found was the bad tooth. Your urine and chest x-ray were normal. Follow-up with your dentist as soon as possible. Return for new or worsening symptoms.
[2019-09-25 13:27] LABS: BASOPHILS % (AUTO) 0.4 %; EOSINOPHILS # (AUTO) 0.4 10^3/uL (0.0-0.7); EOSINOPHILS % (AUTO) 4.8 %; HGB - HEMOGLOBIN 14.2 g/dL (14.0-18.0); LYMPHOCYTES # (AUTO) 1.8 10^3/uL (1.5-3.5); MEAN CORPUSCULAR HEMOGLOBIN 29.6 pg (27.0-31.0); MEAN CORPUSCULAR HGB CONC 33.3 g/dL (32.0-36.0); MEAN CORPUSCULAR VOLUME 88.9 fL (80.0-94.0); MEAN PLATELET VOLUME 8.5 fL (7.4-11.4); MONOCYTES # (AUTO) 0.5 10^3/uL (0.0-1.0); MONOCYTES % (AUTO) 5.3 %; NEUTROPHILS # (AUTO) 5.8 10^3/uL (1.5-6.6); NEUTROPHILS % (AUTO) 68.3 %; PLT - PLATELET COUNT 163 10^3/uL (130-450); RED BLOOD COUNT 4.79 10^6/uL (4.70-6.10); RED CELL DISTRIBUTION WIDTH 13.2 % (12.0-15.0); WHITE BLOOD COUNT 8.5 x10^3/uL (4.8-10.8)
--- NOTE | 2019-09-25 13:32 | XRAY Report ---
PROCEDURE: Chest 1 View X-Ray INDICATIONS: fever TECHNIQUE: One view of the chest was acquired. COMPARISON: None. FINDINGS: Surgical changes and devices: None. Lungs and pleura: No pleural effusions or pneumothorax. Lungs are clear. Scattered scarring/atelec tasis Mediastinum: Mediastinal contours appear normal. Heart size is normal. Bones and chest wall: No suspicious bony lesions. Overlying soft tissues appear unremarkable. IMPRESSION: No acute disease Reviewed by: Waldemar Mcadams MD on 09/25/2019 1:31 PM PDT Approved by: Waldemar Mcadams MD on 09/25/2019 1:31 PM PDT Station ID: [id number]
[2019-09-25 13:43] LABS: ALBUMIN 4.3 g/dL (3.2-5.5); ALBUMIN/GLOBULIN RATIO 1.1 (1.0-2.2); BILIRUBIN,TOTAL 0.6 mg/dL (0.2-1.0); CALCIUM 9.7 mg/dL (8.5-10.3); CREATININE 0.9 mg/dL (0.6-1.2); TOTAL PROTEIN 8.1 g/dL (6.7-8.2)
[2019-09-25 14:22] LABS: BILIRUBIN,URINE NEGATIVE (NEGATIVE); GLUCOSE, URINE (UA) NEGATIVE (NEGATIVE); KETONES,URINE (UA) NEGATIVE (NEGATIVE); LEUKOCYTE ESTERASE, URINE NEGATIVE (NEGATIVE); NITRITE,URINE NEGATIVE (NEGATIVE); OCCULT BLOOD,URINE NEGATIVE (NEGATIVE); PROTEIN,URINE TRACE mg/dL (NEGATIVE); UROBILINOGEN,URINE 0.2 (NORMAL) E.U./dL (NORMAL)
[2019-09-25 14:26] LABS: CLARITY,URINE CLEAR (CLEAR)
[2019-09-25] MEDS ORDERED: PENICILLIN VK 250 MG TABLET PO STA (14:50)
[2019-09-25 14:58] VITALS: BP 152/109
== END 2019-09-25 15:15 | disposition home or self-care (01) ==
LOC: ED 12:20
DX: K04.7 Periapical abscess without sinus (principal); Z20.828 Contact with and (suspected) exposure to other viral communicable diseases; E11.621 Type 2 diabetes mellitus with foot ulcer; L89.619 Pressure ulcer of right heel, unspecified stage; Z79.4 Long term (current) use of insulin; I10 Essential (primary) hypertension; Z87.19 Personal history of other diseases of the digestive system; Z87.891 Personal history of nicotine dependence; Z89.512 Acquired absence of left leg below knee
CPT/HCPCS: 36415; 71045; 80053; 81003; 83605; 83690; 85025; 99283; 99284; A9270; U0004; 81001; 81599; 87086

== ENCOUNTER 2019-10-05 14:15 | Outpatient (CLI) | payer MEDICARE ==
--- NOTE | 2019-10-05 19:43 | CONSULTATION NOTE ---
Palliative Care Consultation - Referral Referring Provider: Dr. Jaime Orr Time of Visit: [id number] Referral setting: Home Referral Reason: Acute on chronic pain/s/p C3-4 spine laminectomy/depression/goals of care - Information Sources Records reviewed: Previous records reviewed History/Review of Systems obtained from: Patient, Family ( Fang) Exam limitations: No limitations - History of Present Illness Brief History of Present Illness: This is a complex 64-year-old gentleman, who presents today with acute on chronic pain. He has multiple comorbidities, but has been most challenged with his most recent issues related to development of cervical spine no cord impingement. Patient has been having increasing symptoms of numbness, arm weakness, myoclonus, eye pain, headaches, and worsening pain through his shoulders arms and upper back. This was in the midst of COVID-19, and found it quite stressful in the context of identifying the underlying etiology and accessing medical care. Patient did develop acute symptoms, with inability lift arms, worsening balance in his lower extremities, and presented to the [facility] ED. He was diagnosed with spinal cord impingement, and underwent on 08/16 and urgent C-spine laminectomy. He did return home as this was outpatient, unfortunately he returned back to the hospital on 08/18 2 days postop, with severe uncontrolled pain in his neck and arms, numbness in his legs, and was readmitted for pain control and evaluation. This is a difficult time for his and family, as he was unable to have families, no one to advocate for him, they felt communication was poor particular around pain meds. They had upped his gabapentin from his 900 mg/24, to 2700 mg/24 hrs, attributes this to his increased confusion and distress and was able to identify mistake. They did finally transfer him to rehab, and he was at [facility] from 08/26 to 09/07. He did make some progress, with some improved strength, walking, and was discharged home on MS Contin 30 mg twice daily with 15 mg IR for a total of 6-8 tabs in 24 hours, with tizanidine, as well as intermittent ibuprofen. He was doing fairly well with slow gains, until his pain was exacerbated, which he attributes to physical therapy treatments. His most acute pain, is in his neck area radiating down to his shoulders into his hands he has numbness and tingling, his worst pain is in his upper shoulders. He has developed headaches intermittently again, and now some pain down into his right knee and santana area. He unfortunately also had a fall this morning, denies any residual at this point in time. Did not for lift assist. He also has severe underlying anxiety disorder and PTSD, adding to the complexity of his response to his pain. As well as frustration in being able to communicate most recently regarding refills, as was told to let them know early, so they can mail scripts due to COVID-19 restrictions. He does have longstanding chronic back pain, he has had for over 25 years, has had longstanding chronic pain to the point of disability. He is a retired fleet maintenance foreman, and attributes it to long-term standing on his feet, and has had peripheral neuropathy and complications requiring long-term opioid use over the years. This is fluctuated in dosing, as well as severity. Palliative care referral was requested for coordination of care, and management of pain during this acute recovery time. Patient very complex with multiple health issues, will coordinate with primary care for defined period of time. Patient has had complicated last couple years., He had on 03/2019 carpal tunnel/cubital tunnel surgery, 11/14 BKA for Failed outpatient treatment for diabetic ulcers and Charcot's foot. He has just been recovering this last year, learning to walk on prosthesis. 03/16 he had right knee replacement, 2018 fractured hip and rib, 2015 hernia surgery. He also has a history of rotator cuff have surgery and right shoulder obvious deformity, and ACL surgery. Medical/Surgical History - Past Medical History Cardiovascular: reports: Hypertension, High cholesterol, Other (B/P discrepancy referred to cardiology) Respiratory: reports: Asthma Neuro: Headaches Endocrine/Autoimmune: reports: Type 2 diabetes GI: reports: GERD : reports: None HEENT: reports: None Psych: reports: Depression, Anxiety, Post traumatic stress disorder Musculoskeletal: reports: Osteoarthritis, Osteoporosis, Fatigue, Chronic back pain Derm: reports: None MRSA Hx?: No - Past Surgical History Ortho: reports: Knee replacement, Carpal Tunnel surgery, Spine surgery, Other (cervical laminectomy) Neuro: reports: Other (cervical laminectomy) - Substance History Use: Uses substance without health or social issues: Tobacco (smokes 2-3 cigars a day) Social History - Living Situation Living arrangement: At home Living Situation: With spouse/s.o. Support System: Patient lives at home with his vero Fang, they have been for 41 years. [place] 3 [place]. Patient is a retired fleet maintenance foreman, did have to retire secondary to worsening back pain and disability. His still remains quite active in his life prior VS to a year ago and BKA, was hunting and fishing, and doing projects around the house. Family History - Family History Family History: Mother: , Alzheimer's Disease ( at 91 natural causes), Father: , Alcoholism, CVA/TIA ( at 53 of stroke), Brother: , Cancer (lung cancer age 55) Medications/Allergies - Medications Home Medications: Ambulatory Orders Medication Instructions Recorded Confirmed Amitriptyline HCl 100 mg PO DAILY 05/27/17 10/05/19 Ezetimibe 10 mg PO DAILY 05/27/17 10/05/19 Insulin Glargine [Lantus Solostar] 60 - 70 units SUBQ QPM 05/27/17 10/05/19 Insulin Lispro [Humalog] 15 - 35 units SUBQ BIDWM PRN 05/27/17 10/05/19 clonazePAM [Clonazepam] 0.5 mg PO BID PRN 05/27/17 10/05/19 Pantoprazole Sodium 40 mg PO BID 09/27/17 10/05/19 Docusate Sodium 100 mg PO BID 10/05/19 10/05/19 Escitalopram [Lexapro] 10 mg PO DAILY 10/05/19 10/05/19 Gabapentin 300 mg PO TID MDD titrating up 10/05/19 10/05/19 Lisinopril [Prinivil] 5 mg PO DAILY 10/05/19 10/05/19 Meloxicam 15 mg PO DAILY MDD 2 weeks 10/05/19 10/05/19 Morphine Ir [Ms Ir] 15 mg PO Q4HR PRN MDD 4 tabs 10/05/19 10/05/19 Morphine Sulfate ER [Ms Contin] 30 mg PO BID 10/05/19 10/05/19 Kirwin-3/Dha/Epa/Fish Oil [Kirwin 3 4 cap PO DAILY 10/05/19 10/05/19 500 Softgel] Psyllium Husk [Fiber] 1 cap PO DAILY 10/05/19 10/05/19 Vitamin B Complex/Folic Acid 1 tab PO DAILY 10/05/19 10/05/19 [Super B Maxi Complex Caplet] tiZANidine [Zanaflex] 4 mg PO Q8HR PRN MDD 3 10/05/19 10/05/19 - Allergies Allergies/Adverse Reactions: Allergies Allergy/AdvReac Type Severity Reaction Status Date / Time No Known Drug Allergies Allergy Verified 05/27/17 16:49 Review of Systems - Constitutional Constitutional: reports: Fatigue, Weakness, Weight loss. denies: Fever, Chills - Eyes Eyes: reports: Blurred vision, Vision loss, Dipolpia - Ears, Nose & Throat Ears, Nose & Throat: reports: Hearing loss (right ear), Hoarseness, Dental decay (recent tx for tooth abcess with ED visit; will need further dental work) - Cardiovascular Cardiovascular: reports: Other (recent discover of "mismatched" b/p; today wnl; but planning to see cardilogy; recent decrease in b/pmeds with wt. loss and hospitalization) - Respiratory Respiratory: reports: Other (cpap). denies: SOB at rest - Gastrointestinal Gastrointestinal: reports: Bloating, Early satiety. denies: Constipation (intermittent; only using KRYSTA 100 mg bid for bowels), Nausea - Musculoskeletal Musculoskeletal: reports: Muscle pain, Back pain, Muscle aches, Stiffness, Limited range of motion, Muscle weakness, Joint pain (right knee), Assistive devices (using walker) - Integumentary Integumentary: reports: Rash, Dryness, Other (recent healed stage II decubs) - Neurological Neurological: reports: Headache (recurrent last few weeks; responds to apap), Numbness (hands/lower arms), Other (paralysis improved) - Psychiatric Psychiatric: reports: Depression, Anxiety - Endocrine Endocrine: reports: Diabetes type 2 (sugars improved; 08/11 aic 6.2) - Hematologic/Lymphatic Hematologic/Lymphatic: reports: Bruising, Recurrent infections (recent abcess tooth) - All Other Systems All Other Systems: reports: Reviewed and negative Physical Exam - Vital Signs Temperature: 96.6 C Pulse Rate: 84 Respiratory Rate: 18 O2 Saturation: 95 (ra @ rest) Blood Pressure: 128/72 (right; 112/72 left) - Physical Exam General Appearance: positive: Alert, Mild distress, Anxious Eyes Bilateral: positive: Normal inspection, No scleral icterus ENT: positive: Hearing loss, Hoarseness (voice somewhat raspy), Dental decay (poor dentition) Neck: positive: Trachea midline Cardiovascular: positive: Regular rate & rhythm Respiratory: positive: No respiratory distress, Breath sounds nml, Diminished in bases. negative: Wheezes, Rales, Rhonchi Abdomen: positive: Non-tender, Soft, Nml bowel sounds, Distended Skin: positive: Dryness, Bruising (upper arms) Extremities: positive: No pedal edema, Other (patient with prosthesis left) Neurologic/Psychiatric: positive: Oriented x3, Weakness, Depressed mood/affect, Flat affect Palliative Care - POLST Patient has POLST: No POLST Status: Full Code Pain: Pain worsening, Location (see HPI), Severity (-11/05) Tiredness/Fatigue: Mild (1-3) Drowsiness/Sedation: Mild (1-3) Nausea: None Anorexia: Mild (1-3), Weight loss Dyspnea: None Depression: Moderate (4-6) Anxiety: Severe (7-10), Comment (longstanding; worsened with recent health problems; exacerbation of PTSD; some improvement wiht lexapro started 09/20; plans to follow up with psychiatry) Feelings of wellbeing/Perceived Quality of Life: Fair, Worsening, Comment (feels was improving; now worsened over last couple of weeks; but sees some imp rovement over last couple of days) Sleep: Sleep improved, Variable sleep pattern Constipation: Yes, Opoid induced, Managed Performance Status: Patient with significant weakness in his upper arms, poor fine motor movement, limited range of motion. Had improved some, backsliding now improving again. Is able to ambulate short distances with his walker, but worsening balance and cervical symptoms. He is needing some assistance with ADLs, is working with home health PT/OT. Functional goals are to walk with a cane, and return closer to previous level of functioning. - Palliative Care Discussion: Patient is been somewhat frustrated with overall experience and journey with his most recent healthcare crisis, patient is also recently changed PCPs, has found coordination and communication difficult. Is hoping to reestablish has has seen Dr. Solis before, has been complicated in light of COVID-19, and his recent hospitalization and ongoing pain issues. Patient has a very supportive , unfortunately this is exacerbated his underlying anxiety, and his depression. He is very hopeful to return to some level of function, as he feels very frustrated with his current pain levels as well as his inability to do things. We did discuss the role of palliative care, I suspect this will be time limited until he plateaus. Will work with PCP, for coordination of pain management until stable. Patient with multiple comorbidities, and high risk for continued complications. We did discuss advanced care planning, patient and report they do have advanced care planning documents, but would like to revisit. Requests they locate these to review at future visit. Patient does express worries about quality of life, further loss of function, and increasing dependence. Impression and Recommendations - Palliative Care Impression: This is a 64-year-old gentleman unfortunately with multiple comorbidities and worsening health problems. Currently his acute situation is related to his spinal cord impingement, treated with a C-spine laminectomy C3-C4 on 08/16, has continued to have complications regarding severe neck pain, numbness, fluctuating functional status, as well as constellation of fluctuating symptoms. Most recently an acute exacerbation, which is now improving. Patient has left BKA with prosthesis, walker dependent at this point, complicating ability to progress. Patient has had fluctuating pain, with recent exacerbation, and worsening of anxiety and depression. Palliative care to provide support regarding pain and symptom management and coordination of care. Recommendations/Counseling Done: 1.Neck pain This is multifactorial, patient is status post laminectomy C3-C4 for spinal cord impingement. Patient continues with severe pain in neck and arms, fluctuating in severity, with constellation of neurologic symptoms. He is improving slowly, but experienced recent acute exacerbation. Patient does describe mostly a neuropathic component, will slowly increase his gabapentin, to see if this will improve his underlying's constellation of symptoms. Patient does have some improvement of paralysis, but it is complicated by needing to use a walker because of his Left BKA. Patient to increase from 300 mg 3 times daily total dose 900 mg, will increase by 300 mg weekly and monitor for sedation with goal of 1800 mg. 2. Right knee pain. Patient has been using intermittent ibuprofen, this is a new symptom with some sharp shooting pain down into the santana as well. Underlying etiology could be an exacerbation of his back pain. Patient also has multiple joint pain with osteoarthritis. Will trial meloxicam 7.5 mg for 1 week, increase to 15 mg daily for short-term. Suspect this is been exacerbated by his recent hospitalizations, deconditioning, and progressive therapy program. 3. Acute on chronic pain. Patient currently on MS Contin 30 mg twice daily, given fluctuating doses over the last couple months starting with hospitalization, this does appear appropriate at current dosing level. Patient has long-term been on MS 15 mg immediate release, for management of chronic back pain. Has appreciated long-acting particularly at nighttime, as does not awaken in pain as previously, related to his back. Patient has been limited to 4/in 24 hours, we did discuss in the context of initiation of long-acting, this would be appropriate. Will work with other supportive medications to see if can find balance. We will follow-up with PCP, regarding coordination of care for pain meds and management. 4. Anxiety. Patient has had an exacerbation of his anxiety, has been a difficult couple months for him, with fluctuating pain and emotional distress. Patient recently started on Lexapro, is seeing some improvement, patient is following up with his psychiatrist. Patient is long-term been on amitriptyline (for neuropathy greather than 25 yrs suspect does not need), and clonazepam, he uses the clonazepam maybe 1 or 2 times a day, patient does have underlying diagnosis of PTSD. Was trialed on risperadone, but stopped as did not find effective. 5. Generalized weakness. Patient does present with worsening functional status, did improve some with rehab stay, is hoping despite setback to continue with his functional goals, to be able to walk with a cane, and improve his ability to manage independently his ADLs, as well as we engage with family and pleasurable activities. Patient is limited by balance, strength, and pain, will continue to monitor. Patient is working with home health PT/OT. 6. Advanced care planning. Initiate conversation regarding advanced care planning and documents, quality of life issues, goals of care. Provided advanced care planning document forms, as well as introduction. Discussion re garding palliative care, and support at least for the short-term, depending on developing or improving health problems over the next few months. Time Spent: 90 minutes with greater than 50% of this done in counseling regarding pain and symptom management, normalizing grief and loss process, and anticipatory guidance. cc Home health
== END 2019-10-05 14:16 | disposition home or self-care (01) ==
LOC: PC 14:15
PROVIDERS: ATTEND Nurse Practitioner Adult Health
DX: Z51.5 Encounter for palliative care (principal); G89.29 Other chronic pain; M54.2 Cervicalgia; M25.561 Pain in right knee; R51 Headache; E11.9 Type 2 diabetes mellitus without complications; F32.9 Major depressive disorder, single episode, unspecified; F41.9 Anxiety disorder, unspecified; F43.10 Post-traumatic stress disorder, unspecified; G62.9 Polyneuropathy, unspecified; R53.1 Weakness; F17.290 Nicotine dependence, other tobacco product, uncomplicated; K59.03 Drug induced constipation; T40.2X5A Adverse effect of other opioids, initial encounter; H91.90 Unspecified hearing loss, unspecified ear; Z89.519 Acquired absence of unspecified leg below knee; H53.2 Diplopia; R27.0 Ataxia, unspecified; Z74.09 Other reduced mobility; Z91.81 History of falling; Z79.4 Long term (current) use of insulin; Z79.899 Other long term (current) drug therapy
CPT/HCPCS: 99345

== ENCOUNTER 2019-10-23 08:04 | Emergency (ER) | payer MEDICARE ==
[2019-10-23 08:10] VITALS: BP 101/65
--- NOTE | 2019-10-23 09:39 | XRAY Report ---
PROCEDURE: Shoulder 3 View RT INDICATIONS: trauma/pain TECHNIQUE: 4 views of the shoulder were acquired. COMPARISON: None. FINDINGS: Bones: Acute fracture involving distal right clavicular shaft is seen with up to 1 cm superior displa cement of distal clavicular head and up to 1.7 cm overlapping at fracture site. There is depression o f the acromion in relation to the clavicular head suggestive of high-grade acromioclavicular joint se paration. No suspicious bony lesions. Visualized ribs appear intact. Soft tissues: No suspicious soft tissue calcifications. IMPRESSION: 1. Acute distal right clavicular shaft fracture with superiorly displaced distal clavicular head and high-grade acromioclavicular joint separation. Reviewed by: Attila Torres MD on 10/23/2019 9:38 AM PDT Approved by: Attila Torres MD on 10/23/2019 9:38 AM PDT Station ID: [id number]
[2019-10-23] MEDS ORDERED: KETOROLAC 60 MG/2 ML VIAL IM STA (09:44)
[2019-10-23] MEDS ORDERED: HYDROmorphone 1 MG/ML CARPUJECT IM STA (09:57)
--- NOTE | 2019-10-23 09:59 | ED Physician Documentation ---
PD HPI UPPER EXT INJURY - Stated complaint Stated Complaint: R SHOULDER INJURY - Chief complaint Chief Complaint: Trauma Ext - History obtained from History obtained from: Patient, Family - History of Present Illness Location: Right, Shoulder Type of injury: Fall Where injury occurred: Home Timing - onset: Today Timing - duration: Days (1) Timing - details: Gradual onset Pain level max: 8 Pain level now: 8 Improved by: Rest Worsened by: Moving, Palpating Associated symptoms: No: Weakness, Numbness, Tingling, Swelling, Discolored Contributing factors: Prior ortho surgery (neck, shoulder). No: Anticoagulated Recently seen: Not recently seen - Additonal information Additional information: 64-year-old male states he was using his walker today trying to leave his house when he tripped and fell landing on the right shoulder. Now complaining of right shoulder pain. Has chronic neck and back pain. Unchanged. Takes morphine for this at home. No loss of consciousness. No vomiting. No seizures. Does have an abrasion on the forehead. Does not take any anticoagulation Review of Systems Ten Systems: 10 systems reviewed and negative Constitutional: denies: Fever, Chills Cardiac: denies: Chest pain / pressure, Palpitations Respiratory: denies: Dyspnea, Cough, Wheezing GI: denies: Abdominal Pain, Vomiting, Constipation, Diarrhea : denies: Dysuria Skin: denies: Rash Musculoskeletal: reports: Neck pain (Chronic and unchanged), Back pain (Chronic and unchanged) Neurologic: denies: Focal weakness, Numbness, Seizure, Confused, Altered mental status, Headache PD PAST MEDICAL HISTORY - Past Medical History Cardiovascular: Hypertension, High cholesterol, Other Respiratory: Asthma Neuro: Headaches Endocrine/Autoimmune: Type 2 diabetes GI: GERD : None HEENT: None Psych: Depression, Anxiety, Post traumatic stress disorder Musculoskeletal: Osteoarthritis, Osteoporosis, Fatigue, Chronic back pain Derm: None - Past Surgical History Past Surgical History: Yes Ortho: Knee replacement, Carpal Tunnel surgery, Spine surgery, Other Neuro: Other - Present Medications Home Medications: Ambulatory Orders Medication Instructions Recorded Confirmed Amitriptyline HCl 100 mg PO DAILY 05/27/17 10/23/19 Ezetimibe 10 mg PO DAILY 05/27/17 10/23/19 Insulin Glargine [Lantus Solostar] 60 units SUBQ QPM 05/27/17 10/23/19 Insulin Lispro [Humalog] 15 - 35 units SUBQ BIDWM PRN 05/27/17 10/23/19 clonazePAM [Clonazepam] 0.5 mg PO DAILY PRN 05/27/17 10/23/19 Pantoprazole Sodium 40 mg PO BID 09/27/17 10/23/19 Docusate Sodium 100 mg PO BID 10/05/19 10/23/19 Escitalopram [Lexapro] 10 mg PO DAILY 10/05/19 10/23/19 Gabapentin 600 mg PO BID MDD titrating up 10/05/19 10/23/19 Lisinopril [Prinivil] 5 mg PO DAILY 10/05/19 10/23/19 Meloxicam 7.5 mg PO BID MDD 2 weeks 10/05/19 10/23/19 Morphine Ir [Ms Ir] 15 mg PO Q4HR PRN MDD 4 tabs 10/05/19 10/23/19 Morphine Sulfate ER [Ms Contin] 30 mg PO BID 10/05/19 10/23/19 [place]-3/Dha/Epa/Fish Oil [[place] 3 4 cap PO DAILY 10/05/19 10/23/19 500 Softgel] Psyllium Husk [Fiber] 1 cap PO DAILY 10/05/19 10/23/19 Vitamin B Complex/Folic Acid 1 tab PO DAILY 10/05/19 10/23/19 [Super B Maxi Complex Caplet] tiZANidine [Zanaflex] 4 mg PO Q8HR PRN MDD 3 10/05/19 10/23/19 Gabapentin 300 mg PO DAILY 10/23/19 10/23/19 - Allergies Allergies/Adverse Reactions: Allergies Allergy/AdvReac Type Severity Reaction Status Date / Time No Known Drug Allergies Allergy Verified 10/23/19 08:10 - Social History Does the pt smoke?: Yes Smoking Status: Current every day smoker Does the pt drink ETOH?: No Does the pt have substance abuse?: No - Immunizations Immunizations are current?: Yes - POLST Patient has POLST: No PD ED PE NORMAL - Vitals Vital signs reviewed: Yes - General General: Alert and oriented X 3, No acute distress, Well developed/nourished - HEENT HEENT: PERRL, EOMI, Moist mucous membranes, Pharynx benign, Other (Abrasion to the forehead. No palpable skull fractures. No hematomas.) - Neck Neck: Supple, no meningeal sign, No bony TTP (No step-off or deformity) - Cardiac Cardiac: RRR, Strong equal pulses - Respiratory Respiratory: No respiratory distress, Clear bilaterally - Abdomen Abdomen: Soft, Non tender, Non distended - Derm Derm: Warm and dry - Extremities Extremities: Other (Right shoulder - Tender to palpation over the AC joint and the distal clavicle. Otherwise normal exam of the shoulder. Neurovascular intact) - Neuro Neuro: Alert and oriented X 3, wire wheeler 2-12 intact, No motor deficit, No sensory deficit, Normal speech - Psych Psych: Normal mood, Normal affect Results - Vitals Vitals: Vital Signs - 24 hr 10/23/19 08:08 Temperature 36.7 C Heart Rate 83 Respiratory 12 Rate Blood Pressure 101/65 O2 Saturation 96 Oxygen O2 Source Room air - Rads (name of study) Right shoulder x-ray Radiology: Prelim report reviewed, EMP read contemporaneously, See rad report (1. Acute distal right clavicular shaft fracture with superiorly displaced distal clavicular head and high-grade acromioclavicular joint separation. ) PD MEDICAL DECISION MAKING - ED course Complexity details: reviewed results, re-evaluated patient, considered differential, d/w patient ED course: 64-year-old male with a distal right clavicle shaft fracture, superiorly or displaced distal clavicular head, high-grade AC joint separation. Placed in a sling for comfort. Has morphine for pain at home. No other acute injuries that require attention. Tetanus up-to-date. No evidence of intracranial hemorrhage or skull fracture that require repair. Head CT held. No new neck or back pain. Patient and family counseled regarding signs and symptoms for which I believe and urgent re-evaluation would be necessary. Patient with good understanding of and agreement to plan and is comfortable going home at this time This document was made in part using voice recognition software. While efforts are made to proofread this document, sound alike and grammatical errors may occur. Axillary nerve intact Departure - Departure Disposition: 01 Home, Self Care Clinical Impression: Fracture, clavicle Qualifiers: Encounter type: initial encounter Clavicle location: lateral end Fracture type: closed Fracture alignment: displaced Laterality: right Qualified Code(s): S42.031A - Displaced fracture of lateral end of right clavicle, initial encounter for closed fracture AC separation Qualifiers: Encounter type: initial encounter Laterality: right Qualified Code(s): S43.101A - Unspecified dislocation of right acromioclavicular joint, initial encounter Condition: Good Instructions: ED Sprain AC Joint, ED Fx Clavicle Follow-Up: NATASHA GREEN MD [Primary Care Provider] - Within 1 week Comments: Please follow-up with your orthopedist of choice. Wear the sling until released by orthopedics. This may or may not require surgery. Return if you worsen Discharge Date/Time: 10/23/19 10:52
== END 2019-10-23 10:52 | disposition home or self-care (01) ==
LOC: ED 08:04
DX: S42.031A Displaced fracture of lateral end of right clavicle, initial encounter for closed fracture (principal); S43.101A Unspecified dislocation of right acromioclavicular joint, initial encounter; W01.0XXA Fall on same level from slipping, tripping and stumbling without subsequent striking against object, initial encounter; Y93.89 Activity, other specified; Y92.008 Other place in unspecified non-institutional (private) residence as the place of occurrence of the external cause; I10 Essential (primary) hypertension; E11.9 Type 2 diabetes mellitus without complications; F17.200 Nicotine dependence, unspecified, uncomplicated; Z79.4 Long term (current) use of insulin
CPT/HCPCS: 73030; 96372; 99283; 99284; J1170

== ENCOUNTER 2019-11-23 14:58 | Outpatient (CLI) | payer MEDICARE ==
[2019-11-23 20:31] LABS: BILIRUBIN,URINE NEGATIVE (NEGATIVE); GLUCOSE, URINE (UA) NEGATIVE (NEGATIVE); KETONES,URINE (UA) NEGATIVE (NEGATIVE); LEUKOCYTE ESTERASE, URINE NEGATIVE (NEGATIVE); NITRITE,URINE NEGATIVE (NEGATIVE); OCCULT BLOOD,URINE NEGATIVE (NEGATIVE); PROTEIN,URINE 100 mg/dL (NEGATIVE); UROBILINOGEN,URINE 0.2 (NORMAL) E.U./dL (NORMAL)
[2019-11-23 20:33] LABS: CLARITY,URINE CLEAR (CLEAR)
[2019-11-23 20:40] LABS: BACTERIA,URINE None Seen /HPF (None Seen); RBC,URINE None Seen /HPF (0-5); SQUAMOUS EPITHELIAL CELL,UR RARE Squamous (<= Few)
== END 2019-11-23 23:59 | disposition home or self-care (01) ==
LOC: LAB.R 14:58
PROVIDERS: ATTEND Nurse Practitioner Adult Health
DX: R33.9 Retention of urine, unspecified (principal)
CPT/HCPCS: 81001; 81003; 87086

== ENCOUNTER 2019-12-11 04:58 | Outpatient (CLI) | payer MEDICARE | END 2019-12-11 04:59 | disposition EMS.NT | LOC: EMS 04:58 | PROVIDERS: ATTEND Surgery | DX: R41.0 Disorientation, unspecified (principal) ==

== ENCOUNTER 2019-12-28 15:15 | Outpatient (CLI) | payer MEDICARE ==
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
== END 2019-12-28 15:16 | disposition home or self-care (01) ==
LOC: PC 15:15
PROVIDERS: ATTEND Nurse Practitioner Adult Health
DX: Z51.5 Encounter for palliative care (principal); M54.2 Cervicalgia; G89.4 Chronic pain syndrome; S42.91XD Fracture of right shoulder girdle, part unspecified, subsequent encounter for fracture with routine healing; W19.XXXD Unspecified fall, subsequent encounter; F23 Brief psychotic disorder; F25.9 Schizoaffective disorder, unspecified; R54 Age-related physical debility; E11.9 Type 2 diabetes mellitus without complications; Z79.4 Long term (current) use of insulin
CPT/HCPCS: 99350

== ENCOUNTER 2020-01-18 15:10 | Outpatient (CLI) | payer MEDICARE ==
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
== END 2020-01-18 15:11 | disposition home or self-care (01) ==
LOC: PC 15:10
PROVIDERS: ATTEND Nurse Practitioner Adult Health
DX: Z51.5 Encounter for palliative care (principal); M25.511 Pain in right shoulder; M25.552 Pain in left hip; M54.9 Dorsalgia, unspecified; M79.10 Myalgia, unspecified site; G89.29 Other chronic pain; F29 Unspecified psychosis not due to a substance or known physiological condition; Z91.14 Patient's other noncompliance with medication regimen; E11.65 Type 2 diabetes mellitus with hyperglycemia; Z79.4 Long term (current) use of insulin; I10 Essential (primary) hypertension; Z89.512 Acquired absence of left leg below knee
CPT/HCPCS: 99350

== ENCOUNTER 2020-01-23 15:12 | Outpatient (CLI) | payer MEDICARE | END 2020-01-23 15:13 | disposition home or self-care (01) | LOC: LAB.S 15:12 | PROVIDERS: ATTEND Nurse Practitioner Adult Health | DX: Z53.9 Procedure and treatment not carried out, unspecified reason (principal) | CPT/HCPCS: 36415; 81001; 81003; 84443; 85025; 87086 ==

== ENCOUNTER 2020-02-02 14:00 | Outpatient (CLI) | payer MEDICARE ==
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
== END 2020-02-02 14:01 | disposition home or self-care (01) ==
LOC: PC 14:00
PROVIDERS: ATTEND Nurse Practitioner Adult Health
DX: Z51.5 Encounter for palliative care (principal); G89.29 Other chronic pain; Z79.899 Other long term (current) drug therapy; Z79.891 Long term (current) use of opiate analgesic; F29 Unspecified psychosis not due to a substance or known physiological condition; M15.9 Polyosteoarthritis, unspecified; K04.7 Periapical abscess without sinus; M47.816 Spondylosis without myelopathy or radiculopathy, lumbar region; M71.9 Bursopathy, unspecified; M75.101 Unspecified rotator cuff tear or rupture of right shoulder, not specified as traumatic; E11.65 Type 2 diabetes mellitus with hyperglycemia; K59.03 Drug induced constipation; T40.2X5A Adverse effect of other opioids, initial encounter; R53.1 Weakness; M54.2 Cervicalgia; G47.00 Insomnia, unspecified
CPT/HCPCS: 99350

== ENCOUNTER 2020-03-14 13:00 | Outpatient (CLI) | payer MEDICARE ==
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
== END 2020-03-14 13:01 | disposition home or self-care (01) ==
LOC: PC 13:00
PROVIDERS: ATTEND Nurse Practitioner Adult Health
DX: Z51.5 Encounter for palliative care (principal); I10 Essential (primary) hypertension; F29 Unspecified psychosis not due to a substance or known physiological condition; R52 Pain, unspecified; E11.9 Type 2 diabetes mellitus without complications; R53.81 Other malaise; F17.200 Nicotine dependence, unspecified, uncomplicated; Z79.4 Long term (current) use of insulin
CPT/HCPCS: 99349

== ENCOUNTER 2020-05-07 14:00 | Outpatient (CLI) | payer MEDICARE ==
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
== END 2020-05-07 14:01 | disposition home or self-care (01) ==
LOC: PC 14:00
PROVIDERS: ATTEND Nurse Practitioner Adult Health
DX: Z51.5 Encounter for palliative care (principal); F41.9 Anxiety disorder, unspecified; G89.29 Other chronic pain; M75.41 Impingement syndrome of right shoulder; M54.5 Low back pain; M19.012 Primary osteoarthritis, left shoulder; M62.81 Muscle weakness (generalized); L89.152 Pressure ulcer of sacral region, stage 2; E11.9 Type 2 diabetes mellitus without complications; Z79.4 Long term (current) use of insulin; Z89.432 Acquired absence of left foot; Z87.39 Personal history of other diseases of the musculoskeletal system and connective tissue
CPT/HCPCS: 99349

== ENCOUNTER 2020-05-31 08:00 | Outpatient (CLI) | payer MEDICARE ==
--- NOTE | 2020-05-31 12:42 | XRAY Report ---
PROCEDURE: Ribs w/PA Chest LT INDICATIONS: CONTUSION OF LEFT BACK WALL THORAX TECHNIQUE: 4 views of the left ribs were acquired, along with a single view chest. COMPARISON: Chest radiograph dated 09/25/2019 FINDINGS: Surgical changes and devices: None. Bones and chest wall: No fractures or dislocations. No suspicious bony lesions. Overlying soft tis sues appear unremarkable. Lungs and pleura: No pleural effusions or pneumothorax. Lungs appear clear. Mediastinum: Mediastinal contours appear normal. Heart size is normal. IMPRESSION: No obvious displaced left rib fracture is noted. No acute cardiopulmonary pathology. Reviewed by: Attila Torres MD on 05/31/2020 12:41 PM PST Approved by: Attila Torres MD on 05/31/2020 12:41 PM PST Station ID: [id number]
== END 2020-05-31 23:59 | disposition home or self-care (01) ==
LOC: DI.S 08:00
PROVIDERS: ATTEND Physician Assistant Medical
DX: S20.222A Contusion of left back wall of thorax, initial encounter (principal); D64.9 Anemia, unspecified; R30.0 Dysuria; Z79.899 Other long term (current) drug therapy
CPT/HCPCS: 36415; 80053; 81001; 81003; 85025; 87086

== ENCOUNTER 2020-05-31 11:08 | Outpatient (CLI) | payer MEDICARE ==
[2020-05-31 15:30] LABS: BASOPHILS % (AUTO) 0.4 %; EOSINOPHILS # (AUTO) 0.3 10^3/uL (0.0-0.7); EOSINOPHILS % (AUTO) 4.2 %; HCT - HEMATOCRIT 43.4 % (42.0-52.0); HGB - HEMOGLOBIN 14.3 g/dL (14.0-18.0); LYMPHOCYTES # (AUTO) 1.1 10^3/uL (1.5-3.5); LYMPHOCYTES % (AUTO) 15.2 %; MEAN CORPUSCULAR HEMOGLOBIN 31.2 pg (27.0-31.0); MEAN CORPUSCULAR HGB CONC 32.9 g/dL (32.0-36.0); MEAN CORPUSCULAR VOLUME 94.6 fL (80.0-94.0); MEAN PLATELET VOLUME 9.6 fL (7.4-11.4); MONOCYTES # (AUTO) 0.5 10^3/uL (0.0-1.0); MONOCYTES % (AUTO) 6.6 %; NEUTROPHILS # (AUTO) 5.1 10^3/uL (1.5-6.6); NEUTROPHILS % (AUTO) 73.3 %; PLT - PLATELET COUNT 134 10^3/uL (130-450); RED BLOOD COUNT 4.59 10^6/uL (4.70-6.10); RED CELL DISTRIBUTION WIDTH 13.4 % (12.0-15.0)
[2020-05-31 15:40] LABS: ALBUMIN 3.6 g/dL (3.2-5.5); ALBUMIN/GLOBULIN RATIO 1.1 (1.0-2.2); BILIRUBIN,TOTAL 0.6 mg/dL (0.2-1.0); CALCIUM 9.1 mg/dL (8.5-10.3); CREATININE 0.8 mg/dL (0.6-1.2); TOTAL PROTEIN 6.9 g/dL (6.7-8.2)
[2020-05-31 16:09] LABS: BILIRUBIN,URINE NEGATIVE (NEGATIVE); GLUCOSE, URINE (UA) NEGATIVE (NEGATIVE); KETONES,URINE (UA) NEGATIVE (NEGATIVE); LEUKOCYTE ESTERASE, URINE NEGATIVE (NEGATIVE); NITRITE,URINE NEGATIVE (NEGATIVE); OCCULT BLOOD,URINE NEGATIVE (NEGATIVE); PH,URINE 6.5 PH (5.0-7.5); PROTEIN,URINE 100 mg/dL (NEGATIVE); UROBILINOGEN,URINE 0.2 (NORMAL) E.U./dL (NORMAL)
[2020-05-31 16:12] LABS: CLARITY,URINE CLEAR (CLEAR)
[2020-05-31 16:31] LABS: BACTERIA,URINE Rare /HPF (None Seen); SQUAMOUS EPITHELIAL CELL,UR RARE Squamous (<= Few); WBC,URINE 0-3 /HPF (0-3)
== END 2020-05-31 11:09 | disposition home or self-care (01) ==
LOC: LAB.S 11:08
PROVIDERS: ATTEND Nurse Practitioner Adult Health
DX: D64.9 Anemia, unspecified (principal); R30.0 Dysuria; Z79.899 Other long term (current) drug therapy
CPT/HCPCS: 36415; 80053; 81001; 81003; 85025; 87086

== ENCOUNTER 2020-06-15 21:31 | Outpatient (CLI) | payer MEDICARE | END 2020-06-15 21:32 | disposition critical access hospital (66) | LOC: EMS 21:31 | PROVIDERS: ATTEND Emergency Medicine | DX: R46.89 Other symptoms and signs involving appearance and behavior (principal) | CPT/HCPCS: A0425; A0429 ==

== ENCOUNTER 2020-06-15 22:06 | Emergency (ER) | payer MEDICARE ==
[2020-06-15] MEDS ORDERED: LORazepam 1 MG TABLET PO STA (22:21)
[2020-06-15] MEDS ORDERED: oxyCODONE 5 MG TABLET PO STA (22:22)
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
[2020-06-15 23:42] LABS: BASOPHILS # (AUTO) 0.1 10^3/uL (0.0-0.1); BASOPHILS % (AUTO) 0.6 %; EOSINOPHILS # (AUTO) 0.3 10^3/uL (0.0-0.7); EOSINOPHILS % (AUTO) 3.5 %; HCT - HEMATOCRIT 43.7 % (42.0-52.0); HGB - HEMOGLOBIN 15.1 g/dL (14.0-18.0); LYMPHOCYTES % (AUTO) 23.6 %; MEAN CORPUSCULAR HEMOGLOBIN 31.4 pg (27.0-31.0); MEAN CORPUSCULAR HGB CONC 34.6 g/dL (32.0-36.0); MEAN CORPUSCULAR VOLUME 90.9 fL (80.0-94.0); MONOCYTES # (AUTO) 0.7 10^3/uL (0.0-1.0); MONOCYTES % (AUTO) 8.7 %; NEUTROPHILS # (AUTO) 5.3 10^3/uL (1.5-6.6); NEUTROPHILS % (AUTO) 63.4 %; PLT - PLATELET COUNT 136 10^3/uL (130-450); RED BLOOD COUNT 4.81 10^6/uL (4.70-6.10); RED CELL DISTRIBUTION WIDTH 12.9 % (12.0-15.0); WHITE BLOOD COUNT 8.3 x10^3/uL (4.8-10.8)
[2020-06-15 23:55] LABS: ACETAMINOPHEN < 10 ug/mL (10-30); ALBUMIN 3.4 g/dL (3.2-5.5); ALKALINE PHOSPHATASE 54 IU/L (42-121); ALT ALANINE AMINOTRANSFERASE 18 IU/L (10-60); AST ASPARTATE AMINOTRANSFERASE 16 IU/L (10-42); BILIRUBIN,TOTAL 0.8 mg/dL (0.2-1.0); BUN - BLOOD UREA NITROGEN 17 mg/dL (6-20); CALCIUM 8.9 mg/dL (8.5-10.3); CARBON DIOXIDE - CO2 23 mmol/L (21-32); CHLORIDE 98 mmol/L (101-111); CREATININE 0.8 mg/dL (0.6-1.2); ETOH - ETHANOL < 5.0 mg/dL; GFR - MDRD 97 (>89); GLUCOSE 263 mg/dL (70-100); LIPASE 17 U/L (22-51); POTASSIUM 3.6 mmol/L (3.5-5.0); SALICYLATE < 6.0 mg/dL; SODIUM 132 mmol/L (135-145); TOTAL PROTEIN 6.8 g/dL (6.7-8.2)
[2020-06-16 01:11] LABS: MUDS CUTOFF CONCENTRATIONS CUTOFF CONC BELOW:
[2020-06-16 01:12] LABS: BILIRUBIN,URINE NEGATIVE (NEGATIVE); GLUCOSE, URINE (UA) 250 mg/dL (NEGATIVE); KETONES,URINE (UA) 15 mg/dL (NEGATIVE); LEUKOCYTE ESTERASE, URINE NEGATIVE (NEGATIVE); NITRITE,URINE NEGATIVE (NEGATIVE); OCCULT BLOOD,URINE TRACE-INTA (NEGATIVE); PROTEIN,URINE 100 mg/dL (NEGATIVE); UROBILINOGEN,URINE 1 (NORMAL) E.U./dL (NORMAL)
[2020-06-16 01:14] LABS: CLARITY,URINE CLEAR (CLEAR)
[2020-06-16 01:26] LABS: BACTERIA,URINE Rare /HPF (None Seen); RBC,URINE 0-5 /HPF (0-5); SPERM,URINE PRESENT; SQUAMOUS EPITHELIAL CELL,UR NONE SEEN (<= Few); WBC,URINE 0-3 /HPF (0-3)
[2020-06-16 01:27] LABS: AMPHETAMINE SCREEN,URINE NEGATIVE (NEGATIVE); BARBITURATE SCREEN,UR NEGATIVE (NEGATIVE); BENZODIAZEPINES SCREEN, URINE NEGATIVE (NEGATIVE); COCAINE SCREEN URINE NEGATIVE (NEGATIVE); METHADONE SCREEN, URINE NEGATIVE (NEGATIVE); METHAMPHETAMINES SCREEN, URINE NEGATIVE (NEGATIVE); OPIATE SCREEN, URINE POSITIVE (NEGATIVE); OXYCODONE SCREEN, URINE POSITIVE (NEGATIVE); PROPOXYPHENE SCREEN, URINE NEGATIVE (NEGATIVE); THC CANNABINOID SCREEN, URINE NEGATIVE (NEGATIVE); TRICYCLIC ANTIDEPRESSANT,URINE POSITIVE (NEGATIVE)
[2020-06-16 01:59] LABS: B. PARAPERTUSSIS- RESP PCR PAN NOT DETECTED; B. PERTUSSIS- RESP PCR PANEL NOT DETECTED; C. PNEUMONIAE- RESP PCR PANEL NOT DETECTED; CORONAVIRUS 229E-RESP PCR NOT DETECTED; CORONAVIRUS HKU1-RESP PCR NOT DETECTED; CORONAVIRUS NL63-RESP PCR NOT DETECTED; CORONAVIRUS OC43-RESP PCR NOT DETECTED; HUMAN METAPNEUMOVIRUS NOT DETECTED; INFLUENZA A- RESP PCR PANEL NOT DETECTED; INFLUENZA B - RESP PCR PANEL NOT DETECTED; M. PNEUMONIAE- RESP PCR PANEL NOT DETECTED; PARAINFLUENZA VIRUS 1 NOT DETECTED; PARAINFLUENZA VIRUS 2 NOT DETECTED; PARAINFLUENZA VIRUS 3 NOT DETECTED; PARAINFLUENZA VIRUS 4 NOT DETECTED; RHINOVIRUS/ENTEROVIRUS NOT DETECTED; RSV- RESP PCR PANEL NOT DETECTED; SARS-CoV-2 -RESP PCR PANEL NOT DETECTED
[2020-06-16] MEDS ORDERED: oxyCODONE 5 MG TABLET PO STA ×4 (02:39→21:37)
[2020-06-16] MEDS ORDERED: OLANZapine ODT 5 MG TABLET TL ONE (02:40)
[2020-06-16] MEDS ORDERED: clonazePAM 0.5 MG TABLET PO STA (10:19)
--- NOTE | 2020-06-16 12:24 | XRAY Report ---
PROCEDURE: Shoulder 3 View RT INDICATIONS: recent shoulder injury TECHNIQUE: 4 views of the shoulder were acquired. COMPARISON: Right shoulder radiographs 10/23/2019. CXR 07/20/2019. FINDINGS: Bones: Prior right distal clavicle fracture with superior displacement. AC joint widening is similar. No dislocation of the glenohumeral joint. Degenerative change appreciated at the before meals and G H joints. No suspicious bony lesions. Visualized ribs appear intact. Soft tissues: No suspicious soft tissue calcifications. IMPRESSION: No acute fracture or dislocation. Prior right distal clavicle fracture. This report is concordant with the overnight preliminary interpretation. Reviewed by: Jayson Johnson MD on 06/16/2020 11:23 AM SARAH Approved by: Jayson Johnson MD on 06/16/2020 11:23 AM SARAH Station ID: [id number]
[2020-06-16] MEDS: ONDANSETRON ODT 4 MG TABLET TL STA ×2 (22:55→22:58)
[2020-06-16] MEDS ORDERED: ONDANSETRON ODT 4 MG TABLET TL STA (23:07)
[2020-06-17] MEDS ORDERED: clonazePAM 0.5 MG TABLET PO STA (00:45)
[2020-06-17] MEDS ORDERED: oxyCODONE 5 MG TABLET PO STA ×2 (00:45→11:09)
[2020-06-17] MEDS ORDERED: ONDANSETRON 4 MG/2 ML VIAL IVP STA (01:06)
[2020-06-17] MEDS ORDERED: SODIUM CHLORIDE 0.9% 1,000 ML IV STA (01:06)
[2020-06-17] MEDS: INSULIN GLARGINE 300 UNIT/3 ML PEN SUBQ SCH ×2 (06:13→21:17)
[2020-06-17] MEDS ORDERED: KETAMINE 40 MG in SODIUM CHLORIDE 0.9% 100ML 100 ML IV STA (07:40)
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
[2020-06-17] MEDS: INSULIN ASPART 300 UNIT/3 ML PEN SUBQ SCH ×6 (08:10→21:10)
[2020-06-17] MEDS: fentaNYL 50 MCG PATCH TOP SCH (08:33)
[2020-06-17 12:00] LABS: ESTIMATED AVERAGE GLUCOSE 160 mg/dL (70-100); HEMOGLOBIN A1c% 7.2 % (4.27-6.07)
[2020-06-17] MEDS ORDERED: DIVALPROEX ER 250 MG TABLET PO STA (14:23)
[2020-06-17] MEDS: DIVALPROEX ER 250 MG TABLET PO SCH ×2 (21:00)
[2020-06-18] MEDS: INSULIN ASPART 300 UNIT/3 ML PEN SUBQ SCH ×8 (08:21→21:26)
[2020-06-18] MEDS: DIVALPROEX ER 250 MG TABLET PO SCH ×3 (09:00→21:22)
--- NOTE | 2020-06-18 19:24 | ED Physician Documentation ---
ED Addendum - Addendum Addendum: 06/18/20 19:21 Discussed with palliative care Joanne Leyva in regards to the patientshe suggested that we restart his amitriptyline 100 mg daily which she has been taking for the past 30 years. She noted that he has been hospitalized with pain crisis with fentanyl in the past with as needed morphine. He appears to be controlled with his current regimen. We will continue to monitor. He has been home today and social work is still in the process of attempting placement. We are having difficulty due to his unique medical situation with mild decubitus ulcer and walker. Possibility of discharge with outpatient management pending s/w eval and discussion with family tomorrow.
[2020-06-18] MEDS: AMITRIPTYLINE 25 MG TABLET PO SCH (21:22)
[2020-06-18] MEDS: INSULIN GLARGINE 300 UNIT/3 ML PEN SUBQ SCH (21:24)
[2020-06-19] MEDS: INSULIN ASPART 300 UNIT/3 ML PEN SUBQ SCH ×6 (08:28→21:06)
[2020-06-19] MEDS: DIVALPROEX ER 250 MG TABLET PO SCH ×3 (08:29→21:05)
--- NOTE | 2020-06-19 14:57 | ED Physician Documentation ---
ED Addendum - Addendum Addendum: 06/19/20 14:52 I received an update from DON Machuca that the patient was not able to be placed today. 5 places are still a possibility and she is waiting to hear from Martin. She suggested we possibly attempt to send him to [facility] or [facility]. Patient not agreeable to this option as of yet.
[2020-06-19] MEDS ORDERED: HYDROmorphone 2 MG TABLET PO STA (15:38)
[2020-06-19] MEDS: AMITRIPTYLINE 25 MG TABLET PO SCH (21:05)
[2020-06-19] MEDS: INSULIN GLARGINE 300 UNIT/3 ML PEN SUBQ SCH (21:07)
[2020-06-20] MEDS: fentaNYL 50 MCG PATCH TOP SCH (09:43)
[2020-06-20] MEDS: DIVALPROEX ER 250 MG TABLET PO SCH (09:43)
[2020-06-20] MEDS: INSULIN ASPART 300 UNIT/3 ML PEN SUBQ SCH ×5 (09:46→17:59)
[2020-06-20] MEDS ORDERED: KETOROLAC 30 MG/ML VIAL IVP STA (12:03)
--- NOTE | 2020-06-20 19:05 | ED Physician Documentation ---
ED Addendum - Addendum Addendum: 06/20/20 19:03 d/w Social work today - given our difficulty finding IPP placement, patient's is now possibly amenable to discharge with help of her children. They have good follow up with his outpatient psychiatrist Dr. Debroa Read at [facility] in [place]. [phone].
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
[2020-06-20 20:46] VITALS: BP 111/65
== END 2020-06-20 20:44 | disposition home or self-care (01) ==
LOC: EDUNIT# → ED 22:06
DX: F33.3 Major depressive disorder, recurrent, severe with psychotic symptoms (principal); R45.850 Homicidal ideations; F29 Unspecified psychosis not due to a substance or known physiological condition; F91.9 Conduct disorder, unspecified; G89.29 Other chronic pain; L89.159 Pressure ulcer of sacral region, unspecified stage; Z20.822 Contact with and (suspected) exposure to COVID-19; M19.011 Primary osteoarthritis, right shoulder; I10 Essential (primary) hypertension; E11.9 Type 2 diabetes mellitus without complications; Z79.4 Long term (current) use of insulin; Z89.612 Acquired absence of left leg above knee; F17.200 Nicotine dependence, unspecified, uncomplicated
CPT/HCPCS: 36415; 73030; 80053; 80306; 80307; 81001; 83036; 83690; 84443; 85025; 87631; 96374; 99285; A9270; G0480; J1815; J8499; Q0162; 0202U; 80320; 80329; 81003; 87086

== ENCOUNTER 2020-06-28 15:46 | Outpatient (CLI) | payer MEDICARE ==
--- OUTSIDE RECORDS SUMMARY | 2020-07-03 02:33 | EXTERNAL MEDICAL SUMMARY RPT | Continuity of Care Document ---
:1955 Demographics Phone Unavailable Preferred Language Unknown Marital Status Unknown [place] Affiliation Unknown Race Unknown Ethnic Group Unknown Author Organization [facility] Address [address] [place] [address] Phone Care Team Providers Name Role Phone [...] [facility] 20200531 XR RIBS UNIL W/PA CHEST MIN 3V [facility] 20200531 Alcohol use [facility] 20200531 Contusion of left back wall of [facility], initial encounter [facility] 20200531 Contusion of rib [facility] 20200531 Current every day smoker [facility] 20200531 Exercise [facility] 20200531 Total score? [facility] 20200629 Delusional [facility] 20200629 F PSYCH EVAL [facility] 20200629 Type 2 diabetes mellitus [...] 156 lb Social History date description facility [id number]
== END 2020-06-28 15:47 | disposition critical access hospital (66) ==
LOC: EMS 15:46
PROVIDERS: ATTEND Emergency Medicine
DX: R41.0 Disorientation, unspecified (principal); R52 Pain, unspecified; R46.89 Other symptoms and signs involving appearance and behavior
CPT/HCPCS: A0425; A0429

== ENCOUNTER 2020-06-28 17:18 | Emergency (ER) | payer MEDICARE ==
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
[2020-06-28 17:53] LABS: BASOPHILS % (AUTO) 0.4 %; EOSINOPHILS # (AUTO) 0.2 10^3/uL (0.0-0.7); EOSINOPHILS % (AUTO) 2.1 %; HGB - HEMOGLOBIN 15.6 g/dL (14.0-18.0); LYMPHOCYTES # (AUTO) 1.6 10^3/uL (1.5-3.5); LYMPHOCYTES % (AUTO) 20.2 %; MEAN CORPUSCULAR HGB CONC 34.7 g/dL (32.0-36.0); MEAN CORPUSCULAR VOLUME 89.5 fL (80.0-94.0); MEAN PLATELET VOLUME 9.4 fL (7.4-11.4); MONOCYTES # (AUTO) 0.6 10^3/uL (0.0-1.0); MONOCYTES % (AUTO) 8.2 %; NEUTROPHILS # (AUTO) 5.3 10^3/uL (1.5-6.6); NEUTROPHILS % (AUTO) 68.8 %; PLT - PLATELET COUNT 170 10^3/uL (130-450); RED BLOOD COUNT 5.03 10^6/uL (4.70-6.10); RED CELL DISTRIBUTION WIDTH 12.7 % (12.0-15.0); WHITE BLOOD COUNT 7.7 x10^3/uL (4.8-10.8)
[2020-06-28 18:05] LABS: ACETAMINOPHEN < 10 ug/mL (10-30); ALBUMIN 3.5 g/dL (3.2-5.5); ALKALINE PHOSPHATASE 61 IU/L (42-121); ALT ALANINE AMINOTRANSFERASE 18 IU/L (10-60); AST ASPARTATE AMINOTRANSFERASE 15 IU/L (10-42); BILIRUBIN,TOTAL 0.8 mg/dL (0.2-1.0); BUN - BLOOD UREA NITROGEN 16 mg/dL (6-20); CALCIUM 9.3 mg/dL (8.5-10.3); CARBON DIOXIDE - CO2 23 mmol/L (21-32); CHLORIDE 100 mmol/L (101-111); CREATININE 0.8 mg/dL (0.6-1.2); ETOH - ETHANOL < 5.0 mg/dL; GFR - MDRD 97 (>89); GLUCOSE 268 mg/dL (70-100); LIPASE 19 U/L (22-51); SALICYLATE < 6.0 mg/dL; SODIUM 136 mmol/L (135-145); TOTAL PROTEIN 7.1 g/dL (6.7-8.2)
[2020-06-28 18:42] LABS: B. PARAPERTUSSIS- RESP PCR PAN NOT DETECTED; B. PERTUSSIS- RESP PCR PANEL NOT DETECTED; C. PNEUMONIAE- RESP PCR PANEL NOT DETECTED; CORONAVIRUS 229E-RESP PCR NOT DETECTED; CORONAVIRUS HKU1-RESP PCR NOT DETECTED; CORONAVIRUS NL63-RESP PCR NOT DETECTED; CORONAVIRUS OC43-RESP PCR NOT DETECTED; HUMAN METAPNEUMOVIRUS NOT DETECTED; INFLUENZA A- RESP PCR PANEL NOT DETECTED; INFLUENZA B - RESP PCR PANEL NOT DETECTED; M. PNEUMONIAE- RESP PCR PANEL NOT DETECTED; PARAINFLUENZA VIRUS 1 NOT DETECTED; PARAINFLUENZA VIRUS 2 NOT DETECTED; PARAINFLUENZA VIRUS 3 NOT DETECTED; PARAINFLUENZA VIRUS 4 NOT DETECTED; RHINOVIRUS/ENTEROVIRUS NOT DETECTED; RSV- RESP PCR PANEL NOT DETECTED; SARS-CoV-2 -RESP PCR PANEL NOT DETECTED
[2020-06-29] LABS: MUDS CUTOFF CONCENTRATIONS CUTOFF CONC BELOW:
[2020-06-29 00:01] LABS: BILIRUBIN,URINE NEGATIVE (NEGATIVE); GLUCOSE, URINE (UA) 250 mg/dL (NEGATIVE); KETONES,URINE (UA) 15 mg/dL (NEGATIVE); LEUKOCYTE ESTERASE, URINE NEGATIVE (NEGATIVE); NITRITE,URINE NEGATIVE (NEGATIVE); OCCULT BLOOD,URINE NEGATIVE (NEGATIVE); PH,URINE 7.5 PH (5.0-7.5); PROTEIN,URINE >=300 mg/dL (NEGATIVE); UROBILINOGEN,URINE 1 (NORMAL) E.U./dL (NORMAL)
[2020-06-29 00:04] LABS: CLARITY,URINE CLEAR (CLEAR)
[2020-06-29 00:09] LABS: BACTERIA,URINE None Seen /HPF (None Seen); RBC,URINE None Seen /HPF (0-5); SPERM,URINE PRESENT; SQUAMOUS EPITHELIAL CELL,UR NONE SEEN (<= Few); WBC,URINE 0-3 /HPF (0-3)
[2020-06-29 00:11] LABS: AMPHETAMINE SCREEN,URINE NEGATIVE (NEGATIVE); BARBITURATE SCREEN,UR NEGATIVE (NEGATIVE); BENZODIAZEPINES SCREEN, URINE NEGATIVE (NEGATIVE); COCAINE SCREEN URINE NEGATIVE (NEGATIVE); METHADONE SCREEN, URINE NEGATIVE (NEGATIVE); METHAMPHETAMINES SCREEN, URINE NEGATIVE (NEGATIVE); OPIATE SCREEN, URINE POSITIVE (NEGATIVE); OXYCODONE SCREEN, URINE NEGATIVE (NEGATIVE); PROPOXYPHENE SCREEN, URINE NEGATIVE (NEGATIVE); THC CANNABINOID SCREEN, URINE NEGATIVE (NEGATIVE); TRICYCLIC ANTIDEPRESSANT,URINE POSITIVE (NEGATIVE)
[2020-06-29] MEDS ORDERED: INSULIN 70/30 HUMAN 100 UNIT/1 ML 10 ML MDV SUBQ STA (06:19)
[2020-06-29] MEDS ORDERED: MORPHINE IR 15 MG TABLET PO PRN (06:22)
[2020-06-29] MEDS ORDERED: clonazePAM 0.5 MG TABLET PO PRN (06:24)
[2020-06-29] MEDS ORDERED: MORPHINE 2 MG/ML CARPUJECT IM STA (07:22)
[2020-06-29] MEDS ORDERED: HALOPERIDOL 5 MG/ML VIAL IM STA (07:22)
[2020-06-29 07:24] LABS: VALPROIC ACID (DEPAKOTE) < 10.0 ug/mL
[2020-06-29 07:50] VITALS: BP 136/74
[2020-06-29] MEDS ORDERED: PANTOPRAZOLE 40 MG TABLET PO SCH (09:00)
[2020-06-29] MEDS ORDERED: DOCUSATE SODIUM 100 MG CAPSULE PO SCH (09:00)
--- NOTE | 2020-06-29 11:45 | ED Physician Documentation ---
ED Addendum - Addendum Addendum: 06/29/20 11:44 64-year-old gentleman has been boarding in the emergency department. Seen by the DCR and they did a "walk away," because of the lack of psychiatric beds available anywhere. Social work was working with him and looking for beds, the and family decided to take him home. Discussed that since he still had a potentially unstable emergency medical condition, this was an AGAINST MEDICAL ADVICE discharge and their understanding. Son signed appropriate paperwork.
[2020-06-29] MEDS ORDERED: AMITRIPTYLINE 25 MG TABLET PO SCH (21:00)
[2020-06-29] MEDS ORDERED: VALPROATE 250 MG/5 ML SOLUTION UDC PO SCH (21:00)
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
== END 2020-06-29 11:52 | disposition left against medical advice (07) ==
LOC: EDUNIT# → ED 17:18 → SUPCPDRO 17:18 → ED 06-29 11:52
DX: F91.9 Conduct disorder, unspecified (principal); R45.850 Homicidal ideations; I10 Essential (primary) hypertension; E11.9 Type 2 diabetes mellitus without complications; Z79.4 Long term (current) use of insulin; Z89.612 Acquired absence of left leg above knee; F17.200 Nicotine dependence, unspecified, uncomplicated; Z20.822 Contact with and (suspected) exposure to COVID-19; Z53.29 Procedure and treatment not carried out because of patient's decision for other reasons
CPT/HCPCS: 36415; 80053; 80164; 80306; 80307; 81001; 83690; 84443; 85025; 87631; 93005; 96372; 99284; 99285; A9270; G0480; J1815; 0202U; 80320; 80329; 81003; 87086

== ENCOUNTER 2020-08-19 14:20 | Outpatient (CLI) | payer MEDICARE ==
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
== END 2020-08-19 14:21 | disposition home or self-care (01) ==
LOC: PC 14:20
PROVIDERS: ATTEND Nurse Practitioner Adult Health
DX: Z51.5 Encounter for palliative care (principal); G89.29 Other chronic pain; M25.511 Pain in right shoulder; F20.9 Schizophrenia, unspecified; F29 Unspecified psychosis not due to a substance or known physiological condition; F43.10 Post-traumatic stress disorder, unspecified; R53.1 Weakness; I25.10 Atherosclerotic heart disease of native coronary artery without angina pectoris; Z74.09 Other reduced mobility; R64 Cachexia; E11.9 Type 2 diabetes mellitus without complications; M19.90 Unspecified osteoarthritis, unspecified site; M47.816 Spondylosis without myelopathy or radiculopathy, lumbar region; R35.0 Frequency of micturition; Z89.512 Acquired absence of left leg below knee; Z79.4 Long term (current) use of insulin
CPT/HCPCS: 99350

== ENCOUNTER 2020-11-06 11:01 | Outpatient (CLI) | payer MEDICARE ==
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
== END 2020-11-06 11:02 | disposition home or self-care (01) ==
LOC: PC 11:01
PROVIDERS: ATTEND Nurse Practitioner Adult Health
DX: Z51.5 Encounter for palliative care (principal); M25.511 Pain in right shoulder; G89.4 Chronic pain syndrome; R53.1 Weakness; F20.9 Schizophrenia, unspecified; Z79.899 Other long term (current) drug therapy; Z79.891 Long term (current) use of opiate analgesic; E11.9 Type 2 diabetes mellitus without complications; K59.03 Drug induced constipation; T40.2X5A Adverse effect of other opioids, initial encounter; R06.09 Other forms of dyspnea; F17.290 Nicotine dependence, other tobacco product, uncomplicated; Z79.4 Long term (current) use of insulin; Z91.19 Patient's noncompliance with other medical treatment and regimen; Z63.0 Problems in relationship with spouse or partner; Z89.512 Acquired absence of left leg below knee
CPT/HCPCS: 99215

== ENCOUNTER 2021-02-13 15:20 | Outpatient (CLI) | payer MEDICARE ==
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
== END 2021-02-13 15:21 | disposition home or self-care (01) ==
LOC: PC 15:20
PROVIDERS: ATTEND Nurse Practitioner Adult Health
DX: Z51.5 Encounter for palliative care (principal); F29 Unspecified psychosis not due to a substance or known physiological condition; G89.4 Chronic pain syndrome; M62.81 Muscle weakness (generalized)
CPT/HCPCS: 99349

== ENCOUNTER 2021-04-23 07:35 | Outpatient (CLI) | payer MEDICARE ==
[2021-04-23 15:26] LABS: CHOLESTEROL 181 mg/dL; HDL CHOLESTEROL 36 mg/dL; LDL CHOLESTEROL,CALCULATED 98 mg/dL; LDL/HDL RATIO 2.7 (<3.6); TRIGLYCERIDES 234 mg/dL; VLDL CHOLESTEROL 47 mg/dL
[2021-04-23 15:40] LABS: MICROALBUM/CREATININE RATIO,UR 1216.3 ug/mg (<30.0); MICROALBUMIN,URINE 59.6 mg/dL (0-300.0)
[2021-04-23 20:01] LABS: ESTIMATED AVERAGE GLUCOSE 154 mg/dL (70-100)
== END 2021-04-23 07:36 | disposition home or self-care (01) ==
LOC: LAB.S 07:35
PROVIDERS: ATTEND Family Medicine
DX: E11.621 Type 2 diabetes mellitus with foot ulcer (principal); L97.409 Non-pressure chronic ulcer of unspecified heel and midfoot with unspecified severity
CPT/HCPCS: 36415; 80061; 82043; 82570; 83036; 83721

== ENCOUNTER 2021-05-14 13:30 | Outpatient (CLI) | payer MEDICARE ==
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
== END 2021-05-14 13:31 | disposition home or self-care (01) ==
LOC: PC 13:30
PROVIDERS: ATTEND Nurse Practitioner Adult Health
DX: Z51.5 Encounter for palliative care (principal); G89.4 Chronic pain syndrome; Z79.891 Long term (current) use of opiate analgesic; F17.290 Nicotine dependence, other tobacco product, uncomplicated; R41.89 Other symptoms and signs involving cognitive functions and awareness; F29 Unspecified psychosis not due to a substance or known physiological condition; Z63.8 Other specified problems related to primary support group; E11.9 Type 2 diabetes mellitus without complications; Z79.4 Long term (current) use of insulin; Z79.899 Other long term (current) drug therapy; Z74.1 Need for assistance with personal care; Z91.19 Patient's noncompliance with other medical treatment and regimen; M62.81 Muscle weakness (generalized); Z89.512 Acquired absence of left leg below knee
CPT/HCPCS: 99349

== ENCOUNTER 2021-07-15 12:08 | Emergency (ER) | payer MEDICARE ==
--- NOTE | 2021-07-15 12:59 | ED Physician Documentation ---
History of Present Illness - Stated complaint Stated Complaint: FALL/HEAD INJ - Chief complaint Chief Complaint: Trauma Hd/Nk - Additonal information Additional information: 65-year-old male comes to the emergency department for evaluation of worsening weakness as well as new ground-level fall. Gentleman has a history of diabetes as well as a left BKA secondary to a Charcot foot. His reports that over the last few weeks he has been getting progressively weaker having more difficulty navigating use of the walker and transitioning from chair to bed. he reports that he was in the bathroom and fell backward striking his head on t he ground. He is unsure if he had any loss of consciousness. He is not anticoagulated. Review of Systems Constitutional: denies: Fever, Chills Eyes: reports: Reviewed and negative Ears: reports: Reviewed and negative Nose: reports: Reviewed and negative Throat: reports: Reviewed and negative Cardiac: reports: Reviewed and negative Respiratory: reports: Reviewed and negative Neurologic: reports: Generalized weakness, Head injury. denies: Syncope, Confused, LOC Psychiatric: reports: Reviewed and negative PD PAST MEDICAL HISTORY - Past Medical History Cardiovascular: Hypertension, High cholesterol, Other Respiratory: Asthma Neuro: Headaches Endocrine/Autoimmune: Type 2 diabetes GI: GERD : None HEENT: None Psych: Depression, Anxiety, Post traumatic stress disorder, Other Musculoskeletal: Osteoarthritis, Osteoporosis, Fatigue, Chronic back pain, Other Derm: None - Past Surgical History Past Surgical History: Yes Ortho: Knee replacement, Carpal Tunnel surgery, Spine surgery, Other Neuro: Other - Present Medications Home Medications: Ambulatory Orders Medication Instructions Recorded Confirmed Amitriptyline HCl 100 mg PO DAILY 05/27/17 05/16/21 Insulin Glargine [Lantus Solostar] 20 - 40 units SUBQ QPM 05/27/17 05/16/21 Insulin Lispro [Humalog] 15 - 35 units SUBQ BIDWM PRN 05/27/17 05/16/21 Pantoprazole Sodium 40 mg PO BID 09/27/17 05/16/21 Docusate Sodium 100 mg PO BID 10/05/19 05/16/21 Morphine Ir [Ms Ir] 15 - 30 mg PO Q4HR PRN MDD 8 tabs 10/05/19 05/16/21 Psyllium Husk [Fiber] 3 cap PO DAILY 10/05/19 05/16/21 Vitamin B Complex/Folic Acid 1 tab PO DAILY 10/05/19 05/16/21 [Super B Maxi Complex Caplet] Albuterol Sulfate [Proair Hfa 2 puffs INH Q4HR PRN 12/28/19 05/16/21 Inhaler] Ascorbic Acid [Vitamin C] 250 mg PO DAILY 12/28/19 05/16/21 Ezetimibe 10 mg PO DAILY 12/28/19 05/16/21 fentaNYL 50 MCG PATCH [Duragesic 50 mcg TOP .72 HOURS 05/07/20 05/16/21 50mcg patch] Paliperidone [Invega] 9 mg PO DAILY 08/19/20 05/16/21 Valproic Acid 500 mg PO .500 AM/1400 250 PM 11/06/20 05/16/21 clonazePAM [Clonazepam] 1 mg PO QPM 11/06/20 05/16/21 hydroCHLOROthiazide [Hydrodiuril] 25 mg PO DAILY 05/16/21 05/16/21 - Allergies Allergies/Adverse Reactions: Allergies Allergy/AdvReac Type Severity Reaction Status Date / Time No Known Drug Allergies Allergy Verified 07/15/21 12:25 - Social History Does the pt smoke?: Yes Smoking Status: Current every day smoker Does the pt drink ETOH?: No Does the pt have substance abuse?: No - Immunizations Immunizations are current?: Yes - POLST Patient has POLST: No PD ED PE EXPANDED - General General: Alert - HEENT HEENT: Other (Large 3 x 4 cm posterior occiput hematoma.) - Neck Neck: Supple w/out meningeal sx. No: Adenopathy, Soft tissue TTP, Limited ROM - Cardiac Cardiac: Regular Rate, Radial strong equal. No: Murmur Present - Respiratory Respiratory: Clear to ausultation tamika. No: Distress, Labored - Abdomen Abdomen: Normal Bowel sounds. No: Tender to palpation - Extremities Extremities: Normal, Other (Left BKA) - Neuro Neuro: Alert and Oriented X 3, CNII-XII intact, Normal finger nose, Normal speech - GCS Eye Opening: Spontaneous Motor: Abnormal Flexion Verbal: Oriented Total: 12 Results - Vitals Vitals: Vital Signs - 24 hr 07/15/21 07/15/21 07/15/21 12:18 14:27 16:00 Temperature 37.1 C Heart Rate 109 H 92 102 H Respiratory 15 11 L 16 Rate Blood Pressure 110/79 114/66 134/78 H O2 Saturation 99 93 92 07/15/21 18:00 Temperature Heart Rate 95 Respiratory 18 Rate Blood Pressure 133/75 H O2 Saturation 92 Oxygen O2 Source Room air - EKG (time done) 1238 Rate: Rate (enter#) (108) Rhythm: NSR, Other (multiple PVC's) [place]: RAD Intervals: Normal NH QRS: Normal Ischemia: Normal ST segments Compare to prior EKG: Unchanged from prior EKG Computer interpretation: Agree with computer - Labs Labs: Laboratory Tests 07/15/21 07/15/21 07/15/21 12:34 13:09 13:09 WBC 12.9 H RBC 4.74 Hgb 15.1 Hct 44.7 MCV 94.3 H MCH 31.9 H MCHC 33.8 RDW 14.3 Plt Count 133 MPV 9.0 Neut # (Auto) 10.7 H Lymph # (Auto) 0.8 L Bent # (Auto) 1.3 H Eos # (Auto) 0.1 Baso # (Auto) 0.0 Absolute Nucleated RBC 0.00 Nucleated RBC % 0.0 PT INR Sodium 136 Potassium 3.4 L Chloride 93 L Carbon Dioxide 31 Anion Gap 12.0 BUN 28 H Creatinine 1.1 Estimated GFR (MDRD) 67 L Glucose 290 H Calcium 9.3 Total Bilirubin 0.4 AST 17 ALT 15 Alkaline Phosphatase 57 Troponin I High Sens Total Protein 7.7 Albumin 3.1 L Globulin 4.6 H Albumin/Globulin Ratio 0.7 L Lipase 20 L Urine Color DARK YELLOW Urine Clarity CLEAR Urine pH 6.0 Ur Specific [place] >=1.030 H Urine Protein 100 H Urine Glucose (UA) NEGATIVE Urine Ketones TRACE Urine Occult Blood TRACE-INTA Urine Nitrite NEGATIVE Urine Bilirubin NEGATIVE Urine Urobilinogen 1 (NORMAL) Ur Leukocyte Esterase NEGATIVE Urine RBC 6-10 H Urine WBC 0-3 Ur Squamous Epith Cells RARE Squamous Urine Bacteria Few Urine Casts 0-2 Fine Granular Ur Microscopic Review INDICATED Urine Culture Comments NOT INDICATED SARS-CoV-2 (PCR) 07/15/21 07/15/21 07/15/21 13:09 14:22 15:32 WBC RBC Hgb Hct MCV MCH MCHC RDW Plt Count MPV Neut # (Auto) Lymph # (Auto) Bent # (Auto) Eos # (Auto) Baso # (Auto) Absolute Nucleated RBC Nucleated RBC % PT 11.3 INR 1.0 Sodium Potassium Chloride Carbon Dioxide Anion Gap BUN Creatinine Estimated GFR (MDRD) Glucose Calcium Total Bilirubin AST ALT Alkaline Phosphatase Troponin I High Sens 13.8 Total Protein Albumin Globulin Albumin/Globulin Ratio Lipase Urine Color Urine Clarity Urine pH Ur Specific [place] Urine Protein Urine Glucose (UA) Urine Ketones Urine Occult Blood Urine Nitrite Urine Bilirubin Urine Urobilinogen Ur Leukocyte Esterase Urine RBC Urine WBC Ur Squamous Epith Cells Urine Bacteria Urine Casts Ur Microscopic Review Urine Culture Comments SARS-CoV-2 (PCR) NOT DETECTED - Rads (name of study) CT head Radiology: Final report received (Trace right temporal subarachnoid hemorrhage and tentorial subdural hematoma) CT cervical spine Radiology: Final report received (No CT evidence of acute traumatic cervical spine injury) cxr Radiology: Final report received (No acute cardiopulmonary process) CT head repeat Radiology: Final report received PD MEDICAL DECISION MAKING - ED course Complexity details: reviewed results, re-evaluated patient, considered differential, d/w patient, d/w family ED course: 65-year-old male presents emergency department for evaluation of a closed head injury after a ground-level fall this morning. He does have a history of diabetes as well as Charcot foot and typically uses a walker. reports i ncreasing weakness over the last few days. However he did fall and strike his head this morning and presents with a large hematoma. Subsequent CT imaging did show a small right tentorial subdural with small amount of associated subarachnoid hemorrhage. I discussed this case with Dr. Scott Aceves neurosurgeon on-call at [facility]. He recommends repeating CT imaging 4 to 6 hours after the initial 1 done. If stable and no other concerning findings patient is stable for discharge home. 1840: Repeat CT of the head shows a stable tentorial subdural hematoma with trace subarachnoid hemorrhage. These findings were discussed with the patient and his at the bedside. Patient has been seen to be ambulating without difficulty in the hallways. Patient is recommended follow-up with his primary care provider for repeat CT in at least 2 weeks time. Return precautions for falls and focal neurodeficits were discussed. Patient is advised to abstain from his aspirin for the next 14 days Departure - Departure Disposition: 01 Home, Self Care Clinical Impression: Subdural hematoma, Subarachnoid hemorrhage Condition: Stable Record reviewed to determine appropriate education?: Yes Instructions: Hematoma Subdural Follow-Up: NATASHA ORR MD [Primary Care Provider] - Comments: Wilner was seen today in the emergency department after a fall at home in which he struck the back of his head. He did have a large occiput hematoma. CT imaging did show a small right tentorial subdural hematoma and a trace associated subarachnoid hemorrhage. These findings were discussed with on-call neurosurgeon at [facility]. They simply recommended repeating CT imaging at about 4 to 6 hours. If unchanged patient is stable for discharge home. The repeat CT is essentially unchanged. Wilner does not have any slurred speech weakness in his arms or legs or facial droop. Please discuss this ED visit with Dr. Orr. Wilner should have a repeat CT scan completed in 2 weeks time. If there are any new falls or trauma before then he should come immediately to the ER. He should return immediately to the ER for slurred speech, sudden severe headache, droopy face or weakness in his arms or legs. Please do not give him his aspirin for 14 days, or until after the repeat CT head is completed Discharge Date/Time: 07/15/21 18:53
[2021-07-15 13:18] LABS: BASOPHILS % (AUTO) 0.3 %; EOSINOPHILS # (AUTO) 0.1 10^3/uL (0.0-0.7); EOSINOPHILS % (AUTO) 0.4 %; HCT - HEMATOCRIT 44.7 % (42.0-52.0); HGB - HEMOGLOBIN 15.1 g/dL (14.0-18.0); LYMPHOCYTES # (AUTO) 0.8 10^3/uL (1.5-3.5); LYMPHOCYTES % (AUTO) 5.8 %; MEAN CORPUSCULAR HEMOGLOBIN 31.9 pg (27.0-31.0); MEAN CORPUSCULAR HGB CONC 33.8 g/dL (32.0-36.0); MEAN CORPUSCULAR VOLUME 94.3 fL (80.0-94.0); MONOCYTES # (AUTO) 1.3 10^3/uL (0.0-1.0); MONOCYTES % (AUTO) 9.7 %; NEUTROPHILS # (AUTO) 10.7 10^3/uL (1.5-6.6); NEUTROPHILS % (AUTO) 83.5 %; PLT - PLATELET COUNT 133 10^3/uL (130-450); RED BLOOD COUNT 4.74 10^6/uL (4.70-6.10); RED CELL DISTRIBUTION WIDTH 14.3 % (12.0-15.0); WHITE BLOOD COUNT 12.9 x10^3/uL (4.8-10.8)
[2021-07-15 13:21] LABS: BILIRUBIN,URINE NEGATIVE (NEGATIVE); GLUCOSE, URINE (UA) NEGATIVE (NEGATIVE); KETONES,URINE (UA) TRACE mg/dL (NEGATIVE); LEUKOCYTE ESTERASE, URINE NEGATIVE (NEGATIVE); NITRITE,URINE NEGATIVE (NEGATIVE); OCCULT BLOOD,URINE TRACE-INTA (NEGATIVE); PROTEIN,URINE 100 mg/dL (NEGATIVE); UROBILINOGEN,URINE 1 (NORMAL) E.U./dL (NORMAL)
[2021-07-15 13:22] LABS: CLARITY,URINE CLEAR (CLEAR)
--- NOTE | 2021-07-15 13:28 | XRAY Report ---
PROCEDURE: Chest 1 View X-Ray INDICATIONS: Chest Pain TECHNIQUE: One view of the chest was acquired. COMPARISON: None. FINDINGS: Surgical changes and devices: None. Lungs and pleura: No pleural effusions or pneumothorax. Lungs are clear. Mediastinum: Mediastinal contours appear normal. Heart size is normal. Bones and chest wall: No suspicious bony lesions. Overlying soft tissues appear unremarkable. IMPRESSION: No acute cardiopulmonary process demonstrated radiographically. Reviewed by: Jitendra Walker MD on 07/15/2021 1:27 PM PDT Approved by: Jitendra Walker MD on 07/15/2021 1:27 PM PDT Station ID: [id number]
[2021-07-15 13:31] LABS: ALBUMIN 3.1 g/dL (3.2-5.5); ALBUMIN/GLOBULIN RATIO 0.7 (1.0-2.2); BILIRUBIN,TOTAL 0.4 mg/dL (0.2-1.0); CALCIUM 9.3 mg/dL (8.5-10.3); CREATININE 1.1 mg/dL (0.6-1.2); POTASSIUM 3.4 mmol/L (3.5-5.0); TOTAL PROTEIN 7.7 g/dL (6.7-8.2)
[2021-07-15] MEDS ORDERED: SODIUM CHLORIDE 0.9% 1,000 ML IV STA (13:53)
[2021-07-15 13:57] LABS: BACTERIA,URINE Few /HPF (None Seen); SQUAMOUS EPITHELIAL CELL,UR RARE Squamous (<= Few); WBC,URINE 0-3 /HPF (0-3)
[2021-07-15 13:58] LABS: CASTS, URINE 0-2 Fine Granular /LPF
--- NOTE | 2021-07-15 14:04 | CT Report ---
PROCEDURE: CERVICAL SPINE WO INDICATIONS: glf; hx of laminectomy TECHNIQUE: Noncontrast 3 mm thick sections acquired from the skull base to the T4 level. Sagittal and coronal r eformats were then constructed. For radiation dose reduction, the following was used: automated exp osure control, adjustment of mA and/or kV according to patient size. COMPARISON: MRI cervical spine 05/27/2017 FINDINGS: Image quality: Excellent. Bones: No fracture or dislocation. Straightening of usual cervical lordosis. No listhesis. Laminecto my changes at C2-C3 and C3-C4. No suspicious lytic or blastic osseous lesion. Extensive moderate dege nerative changes. Soft tissues: Prevertebral soft tissues are normal in thickness. No paravertebral hematomas. No ap ical pneumothoraces. IMPRESSION: No CT evidence of acute traumatic cervical spine injury. Reviewed by: Jitendra Walker MD on 07/15/2021 2:03 PM PDT Approved by: Jitendra Walker MD on 07/15/2021 2:03 PM PDT Station ID: [id number]
--- NOTE | 2021-07-15 14:11 | CT Report ---
PROCEDURE: HEAD WO INDICATIONS: glf; hematoma TECHNIQUE: Noncontrast 4.5 mm thick angled axial sections acquired from the foramen magnum to the vertex. For r adiation dose reduction, the following was used: automated exposure control, adjustment of mA and/or kV according to patient size. COMPARISON: May 27, 2017. FINDINGS: BRAIN PARENCHYMA: No acute cortical based (large territory) infarction, intracranial hemorrhage, or m ass effect. Increased density of the right tentorium, compatible with subdural hematoma, measuring 2. 5 mm. Faint increased density in the right temporal sulci, concerning for subarachnoid hemorrhage. The density in the larger dural venous sinuses is grossly normal. VENTRICLES: Prominence of the ventricles and cortical sulci, likely secondary to age-related atrophy. BONES/SINUSES: The skull base and calvarium demonstrate no acute abnormality. Deficiency of the right frontoparietal calvarium, which may reflect prior craniotomy. Postsurgical change of the left facial bones. Mucosal thickening of the ethmoid air cells. The remaining paranasal sinuses and mastoid air cells are well aerated. High convexity left scalp subgaleal hematoma. IMPRESSION: 1.Trace right temporal subarachnoid hemorrhage and tentorial subdural hematoma. Findings were discussed with the ordering provider at the time of dictation. Reviewed by: Zhao Mendoza MD on 07/15/2021 2:10 PM PDT Approved by: Zhao Mendoza MD on 07/15/2021 2:10 PM PDT Station ID: [id number]
[2021-07-15 15:54] LABS: PT - PROTHROMBIN TIME 11.3 secs (9.9-12.6)
--- NOTE | 2021-07-15 18:24 | CT Report ---
PROCEDURE: HEAD WO INDICATIONS: fu SDH/SAH TECHNIQUE: Noncontrast 4.5 mm thick angled axial sections acquired from the foramen magnum to the vertex. For r adiation dose reduction, the following was used: automated exposure control, adjustment of mA and/or kV according to patient size. COMPARISON: None. FINDINGS: Image quality: Excellent. CSF spaces: Basal cisterns are patent. No extra-axial fluid collections. Ventricles are normal in size and shape. Brain: No midline shift. Trace right temporal subarachnoid hemorrhage and thin 2 mm central hematoma layering over the right tentorium. [place]-white matter interface is normal. Skull and face: Calvarium and visualized facial bones are intact, without suspicious lesions. Occip ital scalp hematoma without underlying skull fracture. Left second metacarpal joint fixation hardware noted Sinuses: Visualized sinuses and mastoids are clear. IMPRESSION: Stable right tentorial subdural hematoma and trace right temporal subarachnoid hemorrhage Occipital scalp hematoma without skull fracture Reviewed by: Crhis Hines MD on 07/15/2021 5:22 PM AKDT Approved by: Chris Hines MD on 07/15/2021 5:22 PM AKDT Station ID: [id number]
[2021-07-15 18:28] VITALS: BP 133/75
== END 2021-07-15 18:53 | disposition home or self-care (01) ==
LOC: ED 12:08
DX: S06.5X9A Traumatic subdural hemorrhage with loss of consciousness of unspecified duration, initial encounter (principal); W18.30XA Fall on same level, unspecified, initial encounter; I60.9 Nontraumatic subarachnoid hemorrhage, unspecified; I10 Essential (primary) hypertension; E11.9 Type 2 diabetes mellitus without complications; Z79.4 Long term (current) use of insulin; F17.200 Nicotine dependence, unspecified, uncomplicated; M14.672 Charcot's joint, left ankle and foot; Z20.822 Contact with and (suspected) exposure to COVID-19
CPT/HCPCS: 36415; 80053; 81001; 81003; 83690; 84484; 85025; 85610; 87086; 93005; 99283; 99284

== ENCOUNTER 2021-08-15 16:00 | Outpatient (CLI) | payer MEDICARE ==
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
== END 2021-08-15 16:01 | disposition home or self-care (01) ==
LOC: PC 16:00
PROVIDERS: ATTEND Nurse Practitioner Adult Health
DX: Z51.5 Encounter for palliative care (principal); G89.4 Chronic pain syndrome; M54.9 Dorsalgia, unspecified; M62.81 Muscle weakness (generalized); G95.9 Disease of spinal cord, unspecified; M54.12 Radiculopathy, cervical region; F29 Unspecified psychosis not due to a substance or known physiological condition
CPT/HCPCS: 99349

== ENCOUNTER 2021-08-18 12:43 | Outpatient (CLI) | payer MEDICARE ==
--- NOTE | 2021-08-18 15:21 | DEXA Report ---
PROCEDURE: Dexa Spine and/or Hip INDICATIONS: OSTEOPOROSIS TECHNIQUE: Dual energy x-ray absorptiometry (DXA) was performed on a [employer] System. Regions measur ed are the AP Spine, femoral neck, and if needed forearm. COMPARISON: 02/10/2018. FINDINGS: Lumbar Spine: Bone Mineral Density 1.118 g/cm/cm,T score -0.9, normal Left Hip: Bone Mineral Density 0.799 g/cm/cm,T score -2.1, osteopenia Left Femoral Neck: Bone Mineral Density 0.880 g/cm/cm, T score -1.5, osteopenia (T score greater or equal to -1.0: NORMAL) (T score from -1.1 to -2.4: OSTEOPENIA) (T score less than or equal to -2.5 to: OSTEOPOROSIS) Impression: Osteopenia. Bone mineral density has decreased 10.6% in the interval since prior exam obtained 2017. Patients with diagnosis of osteoporosis or osteopenia should have regular bone mineral density assess ment. For those eligible for Medicare, routine testing is allowed once every 2 years. Testing frequ ency can be increased for patients who have rapidly progressing disease or for those who are receivin g medical therapy to restore bone mass. Reviewed by: Caroline Hanson MD, PhD on 08/18/2021 3:20 PM PDT Approved by: Caroline Hanson MD, PhD on 08/18/2021 3:20 PM PDT Station ID: [id number]
== END 2021-08-18 12:44 | disposition home or self-care (01) ==
LOC: DI 12:43
PROVIDERS: ATTEND Internal Medicine Endocrinology, Diabetes & Metabolism
DX: E29.1 Testicular hypofunction (principal); E11.9 Type 2 diabetes mellitus without complications; M85.89 Other specified disorders of bone density and structure, multiple sites

== ENCOUNTER 2022-08-19 10:49 | Outpatient (CLI) | payer MEDICARE ==
--- NOTE | 2022-08-19 13:42 | DEXA Report ---
PROCEDURE: Dexa Spine and/or Hip INDICATIONS: OSREOPOROSIS TECHNIQUE: Dual energy x-ray absorptiometry (DXA) was performed on a [employer] System. Regions measur ed are the AP Spine, femoral neck, and if needed forearm. COMPARISON: 08/18/2021 FINDINGS: Lumbar Spine: Bone Mineral Density 1.055 g/cm/cm,T score -1.5. Osteopenia, change from previous -5.6%, significant Left Femoral Neck: Bone Mineral Density 0.861 g/cm/cm, T score -1.6. Osteopenia Left Hip: Bone Mineral Density 0.795 g/cm/cm,T score -2.1. Osteopenia, change from previous -10.6%, significant (T score greater or equal to -1.0: NORMAL) (T score from -1.1 to -2.4: OSTEOPENIA) (T score less than or equal to -2.5 to: OSTEOPOROSIS) Impression: By WHO criteria, this patient has low bone density (osteopenia). Significant interval decrease in lumbar spine and left hip bone mineral density compared to the prior study. Patients with diagnosis of osteoporosis or osteopenia should have regular bone mineral density assess ment. For those eligible for Medicare, routine testing is allowed once every 2 years. Testing frequ ency can be increased for patients who have rapidly progressing disease or for those who are receivin g medical therapy to restore bone mass. Reviewed by: Geno Chong MD on 08/19/2022 1:41 PM PDT Approved by: Geno Chong MD on 08/19/2022 1:41 PM PDT Station ID: [id number]
== END 2022-08-19 10:50 | disposition home or self-care (01) ==
LOC: DI 10:49
PROVIDERS: ATTEND Internal Medicine Endocrinology, Diabetes & Metabolism
DX: M85.89 Other specified disorders of bone density and structure, multiple sites (principal)

== ENCOUNTER 2022-12-02 08:00 | Outpatient (CLI) | payer MEDICARE ==
[2022-12-02 15:09] LABS: BILIRUBIN,URINE NEGATIVE (NEGATIVE); GLUCOSE, URINE (UA) NEGATIVE (NEGATIVE); KETONES,URINE (UA) TRACE mg/dL (NEGATIVE); LEUKOCYTE ESTERASE, URINE NEGATIVE (NEGATIVE); NITRITE,URINE NEGATIVE (NEGATIVE); OCCULT BLOOD,URINE TRACE-INTA (NEGATIVE); PROTEIN,URINE >=300 mg/dL (NEGATIVE); UROBILINOGEN,URINE 2 E.U./dL (NORMAL)
[2022-12-02 15:17] LABS: CLARITY,URINE CLEAR (CLEAR)
[2022-12-02 15:43] LABS: BACTERIA,URINE None Seen /HPF (None Seen); SQUAMOUS EPITHELIAL CELL,UR RARE Squamous (<= Few); WBC,URINE 0-3 /HPF (0-3)
== END 2022-12-02 23:59 | disposition home or self-care (01) ==
LOC: LAB.S 08:00
PROVIDERS: ATTEND Nurse Practitioner Adult Health
DX: R35.0 Frequency of micturition (principal); R33.9 Retention of urine, unspecified
CPT/HCPCS: 81001; 87086